=== PATIENT | male | born 1985 | race Hispanic/Latino ===

== ENCOUNTER 2018-02-04 05:05 | Emergency (ER) | payer OTHER ==
[2018-02-04 05:10] VITALS: BP 160/97; PULSE 84; RESP 18; TEMP 97.7; O2SAT 100
--- NOTE | 2018-02-04 05:53 | C.PDOC ---
History Of Present Illness 32 y/o male with PMHx of IVDU and daily heroine use presents to ED for complaints of a sensation of chest pain along with palpitation that lasted approximately until arrival. 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 Patient reports "I felt like my heart was beating out my chest." Patient currently states he feels better and does not wish to have and labs or imaging taken. Chief Complaint (Nursing): Substance Abuse History Per: Patient History/Exam Limitations: no limitations Onset/Duration Of Symptoms: Hrs Current Symptoms Are (Timing): Gone Suicide/Self Injury Attempted (Context): None Modifying Factor(s): Narcotics (Heroine ) Associated Symptoms: denies: Suicidal Thoughts, Suicidal Plan Involuntary Hold By: None Recent travel outside of the [place]: No Past Medical History Reviewed: Historical Data, Nursing Documentation, Vital Signs Vital Signs: Last Vital Signs Temp 97.7 F 02/04/18 05:08 Pulse 84 02/04/18 05:08 Resp 18 02/04/18 05:08 BP 160/97 H 02/04/18 05:08 Pulse Ox 100 02/04/18 06:21 Surgical History: No Surg Hx Family History: States: No Known Family Hx - Social History Hx Alcohol Use: No Hx Substance Use: Yes - Immunization History Hx Tetanus Toxoid Vaccination: No Hx Influenza Vaccination: No Hx Pneumococcal Vaccination: No Review Of Systems Constitutional: Negative for: Fever, Chills Cardiovascular: Positive for: Chest Pain, Palpitations Gastrointestinal: Negative for: Nausea, Vomiting, Abdominal Pain, Diarrhea Skin: Negative for: Rash Neurological: Negative for: Weakness, Numbness Psych: Negative for: Suicidal ideation Physical Exam - Physical Exam Appears: Non-toxic, No Acute Distress, Unkempt Skin: Warm, Dry, Other (Fresh needle green to posterir right forearm) Head: Atraumatic, Normacephalic Eye(s): bilateral: Normal Inspection, PERRL, EOMI Oral Mucosa: Moist Neck: Supple Chest: Symmetrical, No Tenderness Cardiovascular: Rhythm Irregular (with normal rate), No Murmur Respiratory: Normal Breath Sounds, No Decreased Breath Sounds, No Rales, No Rhonchi, No Wheezing Gastrointestinal/Abdominal: Soft, No Tenderness, No Distention, No Guarding, No Rebound Extremity: Normal ROM, No Pedal Edema, No Deformity Extremity: Bilateral: Normal Color And Temperature, Normal ROM Pulses: Left Dorsalis Pedis: Normal, Right Dorsalis Pedis: Normal Neurological/Psych: Oriented x3, Normal Speech, Normal Cognition, Normal Cranial Nerves, Normal Motor, Normal Sensation, Other (No focal deficits; sensorium clear ) Gait: Steady ED Course And Treatment O2 Sat by Pulse Oximetry: 100 (RA) Pulse Ox Interpretation: Normal Medical Decision Making Medical Decision Making: Impression: - S/P methamphetamine injection - Refuses all imaging and laboratories - Patient will be allowed to sign AMA Disposition - Disposition Referrals: [facility] [Outside] Disposition: AGAINST MEDICAL ADVICE Disposition Time: 05:51 Condition: UNKNOWN Instructions: Palpitations, Polysubstance Abuse Forms: [employer] (Nigerian) Print Language: GEORGIAN - Clinical Impression Clinical Impression: Drug abuse, Heart palpitations - Scribe Statement The provider has reviewed the documentation as recorded by the Scribe Blaise Sweeney All medical record entries made by the Scribe were at my direction and personally dictated by me. I have reviewed the chart and agree that the record accurately reflects my personal performance of the history, physical exam, medical decision making, and the department course for this patient. I have also personally directed, reviewed, and agree with the discharge instructions and disposition.
== END 2018-02-04 05:55 | disposition left against medical advice (07) ==
LOC: SUPCPDRO 05:05 → C.ER 05:05
DX: F19.10 Other psychoactive substance abuse, uncomplicated (principal); R00.2 Palpitations

== ENCOUNTER 2018-04-09 07:37 | Observation (INO) | payer OTHER ==
[2018-04-09] MEDS ORDERED: Sodium Chloride 0.9% 1,000 ML IV ONE ×3 (07:52→17:21)
--- NOTE | 2018-04-09 07:53 | C.PDOC ---
History Of Present Illness 32 y/o male with history of IVDA, polysubstance abuse, presents to ED for evaluation of severe epigastric abdominal pain associated with nausea and x2 episodes of non-bilious vomiting gradually developed for few days. Patient reports, decrease appetite, pain is worse with food intake, today developed some fever. Otherwise, pt denies severe headache, chills, dizziness, neck pain, drooling, CP, SOB , dyspnea, wheezing, cough, hematemesis, melena, diarrhea, back pain, UTI sx, denies recent travel or known sick contact. AT the time of evaluation, pt appears in pain. Time Seen by Provider: 04/09/18 07:41 Chief Complaint (Nursing): Abdominal Pain History Per: Patient History/Exam Limitations: no limitations Onset/Duration Of Symptoms: Days Current Symptoms Are (Timing): Still Present Location Of Pain/Discomfort: Epigastric Radiation Of Pain To:: None Past Medical History Reviewed: Historical Data, Nursing Documentation, Vital Signs Vital Signs: Last Vital Signs Temp 102.6 F H 04/09/18 12:42 Pulse 86 04/09/18 12:42 Resp 18 04/09/18 12:42 BP 105/67 04/09/18 12:42 Pulse Ox 98 04/09/18 12:42 - Medical History PMH: No Chronic Diseases Surgical History: No Surg Hx Family History: States: No Known Family Hx - Social History Hx Alcohol Use: Yes Hx Substance Use: Yes (last use yesterday) - Immunization History Hx Tetanus Toxoid Vaccination: No Hx Influenza Vaccination: No Hx Pneumococcal Vaccination: No Review Of Systems Except As Marked, All Systems Reviewed And Found Negative. Constitutional: Positive for: Fever. Negative for: Chills ENT: Negative for: Throat Pain Respiratory: Negative for: Cough, Shortness of Breath, Wheezing Gastrointestinal: Positive for: Nausea, Vomiting, Abdominal Pain. Negative for : Diarrhea, Hematochezia Genitourinary: Negative for: Dysuria Skin: Negative for: Rash Neurological: Negative for: Altered Mental Status Physical Exam - Physical Exam Appears: Non-toxic, Other (In pain ) Skin: Warm, Dry, Pale, No Rash Head: Atraumatic, Normacephalic Eye(s): bilateral: PERRL Nose: No Flaring, No Discharge Oral Mucosa: Moist, No Drooling Tongue: Normal Appearing Lips: Normal Appearing Throat: No Erythema, No Drooling Neck: Trachea Midline, Supple Cardiovascular: Rhythm Regular, No Murmur Respiratory: No Decreased Breath Sounds, No Accessory Muscle Use, No Rales, No Rhonchi, No Stridor, No Wheezing Gastrointestinal/Abdominal: Soft, Tenderness (Moderate epigastric), No Distention, No Guarding, No Rebound Back: No CVA Tenderness Extremity: Normal ROM, No Pedal Edema, No Swelling Neurological/Psych: Oriented x3, Normal Speech, Normal Cognition ED Course And Treatment - Laboratory Results Result Diagrams: 04/09/18 08:15 04/09/18 08:15 Lab Interpretation: Abnormal ECG: Interpreted By Me, Viewed By Me ECG Rhythm: Sinus Rhythm Interpretation Of ECG: SR@92/min, NAD, T wave inversion in III, no acute ST-T changes. O2 Sat by Pulse Oximetry: 99 (RA) Pulse Ox Interpretation: Normal - Radiology CXR: Interpreted by Me, Viewed By Me CXR Interpretation: Yes: Other (increase perihilar markings B/L) - CT Scan/US CT abd/pelvis Other Rad Studies (CT/US): Radiology Report Reviewed CT/US Interpretation: Creator : Garima Coulter. Dictator : Abhijit Villafuerte MD. Patient Registrar : Rubber Off : Abhijit Villafuerte MD. Approver2 : Report Date : 04/09/2018 10:24:01. My Comment : . Date of service: 04/09/2018. PROCEDURE: CT Abdomen and Pelvis with contrast. HISTORY: abd pain. COMPARISON: None. TECHNIQUE: Contrast dose: 100 mL Visipaque 320. Radiation dose: Total exam DLP = 354.6 mGy-cm. This CT exam was performed using one or more of the following dose reduction techniques: Automated exposure control, adjustment of the mA and/or kV according to patient size, and/or use of iterative reconstruction technique. FINDINGS: LOWER THORAX: Unremarkable. LIVER: 8 mm right hepatic dome hypodensity (series 3, image 23). 9 mm peripheral right hepatic lobe hypodensity (series 3, image 35). Posterior right hepatic lobe hypodensity measuring 3.5 cm (series 3, image 41). Periportal edema. GALLBLADDER AND BILE DUCTS: Diffuse gallbladder wall edema. No radiopaque calculi. PANCREAS: Unremarkable. No gross lesion or ductal dilatation. SPLEEN: Unremarkable. ADRENALS: Unremarkable. No mass. KIDNEYS AND URETERS: Unremarkable. No hydronephrosis. No solid mass. VASCULATURE: Unremarkable. No aortic aneurysm. BOWEL: Unremarkable. No obstruction. No gross mural thickening. APPENDIX: No findings to suggest acute appendicitis. PERITONEUM: Unremarkable. No free fluid. No free air. LYMPH NODES: Unremarkable. No enlarged lymph nodes. BLADDER: Unremarkable. REPRODUCTIVE: Unremarkable. BONES: No acute fracture. Unilateral left L5 spondylolysis. OTHER FINDINGS: None. IMPRESSION: Nonspecific hepatic hypodensities which cannot be characterized as simple cysts. The largest is in the posterior right hepatic lobe and measures up to 3.5 cm. Nonspecific periportal edema and diffuse gallbladder wall edema. No radiopaque calculi or obvious ductal dilatation. Progress Note: Code sepsis called after blood work review. Pt was OBS in ED for 3.5 hrs and remianed only slightly improved. Pt reports, " mild improvement in epigastric pain". hemodynamicaly stable, non-toxic. ENT: no acute changes. Lungs: CTA B/L, BS equal B/L. ABd: (+) epigstric tenderness, (-) guarding, (- ) rebound. back: (-) CVA tenderness. neurologicaly intact. CT abd/pelvis review: Nonspecific hepatic hypodensities which cannot be characterized as simple cysts. The largest is in the posterior right hepatic lobe and measures up to 3.5 cm. Nonspecific periportal edema and diffuse gallbladder wall edema. No radiopaque calculi or obvious ductal dilatation. Case discussed with ED attending and admission recommend. results review and discussed with pateint, admisison offered, agrees with plan. Case discussed with Hospitalist and admisison arranged to tele. Critical Care Time - Critical Care Note Total Time (in mins): 40 Documented critical care: time excludes all time spent performing seperately billable procedures. Disposition - Disposition Disposition: HOSPITALIZED Disposition Time: 10:53 Condition: STABLE - Clinical Impression Clinical Impression: Abdominal pain, Fever, Vomiting, Cholecystitis - PA / [employer] SAL[employer] CONSULTANT / Resident Statement MD/DO has reviewed & agrees with the documentation as recorded. - Scribe Statement The provider has reviewed the documentation as recorded by the Rafael Dumont All medical record entries made by the Rafael were at my direction and personally dictated by me. I have reviewed the chart and agree that the record accurately reflects my personal performance of the history, physical exam, medical decision making, and the department course for this patient. I have also personally directed, reviewed, and agree with the discharge instructions and disposition.
[2018-04-09 08:19] LABS: BASO % 0.4 % (0.0-2.0); EOS % 0.2 % (0.0-4.0); HEMOGLOBIN 13.8 g/dL (12.0-18.0); LYMPH # 0.8 K/uL (1.0-4.3); LYMPH % 17.7 % (20.0-40.0); MEAN CORPUSCULAR HGB CONC 34.8 g/dL (33.0-37.0); MEAN PLATELET VOLUME 8.4 fL (7.2-11.7); MONO % 0.6 % (0.0-10.0); NEUT # 3.7 K/uL (1.8-7.0); NEUT % 81.1 % (50.0-75.0); NRBC % 0.1 % (0.0-2.0); RBC 4.32 Mil/uL (4.40-5.90); RED CELL DISTRIBUTION WIDTH 13.5 % (11.5-14.5); WHITE BLOOD COUNT 4.5 K/uL (4.8-10.8)
[2018-04-09 08:27] LABS: INR 1.3; PROTHROMBIN TIME 14.4 SECONDS (9.7-12.2)
[2018-04-09 08:30] LABS: VENOUS BLOOD GAS BASE EXCESS 4.9 mmol/L (0.0-2.0); VENOUS BLOOD GAS PCO2 53 mmHg (40-60); VENOUS BLOOD GAS PO2 28 mm/Hg (30-55); VENOUS BLOOD PH 7.38 (7.32-7.43)
[2018-04-09] MEDS ORDERED: Sodium Chloride 0.9% 1,000 ML ONE ×3 (08:32→13:16)
[2018-04-09] MEDS ORDERED: Piperacillin/Tazobact 3.375 gm 100 ML IV STA (08:36)
[2018-04-09 08:45] LABS: ALB/GLOB RATIO 1.5 (1.0-2.1); ALBUMIN 4.5 g/dL (3.5-5.0); ALT/SGPT 63 U/L (21-72); AST/SGOT 34 U/L (17-59); BLOOD UREA NITROGEN 18 mg/dL (9-20); CALCIUM 9.1 mg/dl (8.6-10.4); GFR AFRICAN-AMERICAN > 60; GFR NON-AFRICAN AMERICAN > 60; LIPASE 44 U/L (23-300)
[2018-04-09] MEDS ORDERED: Piperacillin/Tazobact 3.375 gm 100 ML IVPB ONE (08:46)
[2018-04-09 09:26] LABS: URINE BILIRUBIN NEGATIVE (NEGATIVE); URINE BLOOD NEGATIVE (NEGATIVE); URINE CLARITY Clear (Clear); URINE COLOR Yellow (YELLOW); URINE GLUCOSE (UA) NORMAL (Normal); URINE LEUKOCYTE ESTERASE NEG Leu/uL (Negative); URINE PROTEIN NEGATIVE (NEGATIVE)
[2018-04-09] MEDS ORDERED: Iodixanol 320 MG/ML 100 ML BOTTLE IV ONE (09:57)
[2018-04-09 10:03] LABS: BARBITURATES, UR NEGATIVE (NEGATIVE); BENZODIAZEPINES, UR NEGATIVE (NEGATIVE); PHENCYCLIDINE, UR NEGATIVE (NEGATIVE)
[2018-04-09 10:10] LABS: OPIATES, UR POSITIVE (NEGATIVE)
--- NOTE | 2018-04-09 10:55 | CT ---
Date of service: 04/09/2018 PROCEDURE: CT Abdomen and Pelvis with contrast HISTORY: abd pain COMPARISON: None. TECHNIQUE: Contrast dose: 100 mL Visipaque 320 Radiation dose: Total exam DLP = 354.6 mGy-cm. This CT exam was performed using one or more of the following dose reduction techniques: Automated exposure control, adjustment of the mA and/or kV according to patient size, and/or use of iterative reconstruction technique. FINDINGS: LOWER THORAX: Unremarkable. LIVER: 8 mm right hepatic dome hypodensity (series 3, image 23). 9 mm peripheral right hepatic lobe hypodensity (series 3, image 35). Posterior right hepatic lobe hypodensity measuring 3.5 cm (series 3, image 41). Periportal edema. GALLBLADDER AND BILE DUCTS: Diffuse gallbladder wall edema. No radiopaque calculi. PANCREAS: Unremarkable. No gross lesion or ductal dilatation. SPLEEN: Unremarkable. ADRENALS: Unremarkable. No mass. KIDNEYS AND URETERS: Unremarkable. No hydronephrosis. No solid mass. VASCULATURE: Unremarkable. No aortic aneurysm. BOWEL: Unremarkable. No obstruction. No gross mural thickening. APPENDIX: No findings to suggest acute appendicitis. PERITONEUM: Unremarkable. No free fluid. No free air. LYMPH NODES: Unremarkable. No enlarged lymph nodes. BLADDER: Unremarkable. REPRODUCTIVE: Unremarkable. BONES: No acute fracture. Unilateral left L5 spondylolysis. OTHER FINDINGS: None. IMPRESSION: Nonspecific hepatic hypodensities which cannot be characterized as simple cysts. The largest is in the posterior right hepatic lobe and measures up to 3.5 cm. Nonspecific periportal edema and diffuse gallbladder wall edema. No radiopaque calculi or obvious ductal dilatation.
[2018-04-09] MEDS ORDERED: Vancomycin 1 GM 1 GM/250 ML BAG IV SCH (12:00)
--- NOTE | 2018-04-09 12:20 | RAD ---
Date of service: 04/09/2018 HISTORY: Sepsis Patient COMPARISON: No prior. FINDINGS: LUNGS: No active pulmonary disease. PLEURA: No significant pleural effusion identified, no pneumothorax apparent. CARDIOVASCULAR: Normal. OSSEOUS STRUCTURES: No significant abnormalities. VISUALIZED UPPER ABDOMEN: Normal. OTHER FINDINGS: None. IMPRESSION: No active disease.
[2018-04-09] MEDS: Sodium Chloride 0.9% 1,000 ML IV SCH ×2 (13:12→21:16)
[2018-04-09] MEDS ORDERED: Vancomycin 1 gm/NS 200 ml 1 GM/200 ML BAG IVPB ONE ×2 (13:15→13:30)
[2018-04-09 13:29] LABS: VENOUS BLOOD GAS BASE EXCESS 0.5 mmol/L (0.0-2.0); VENOUS BLOOD GAS PCO2 41 mmHg (40-60); VENOUS BLOOD GAS PO2 65 mm/Hg (30-55)
[2018-04-09] MEDS ORDERED: Piperacillin/Tazobact 3.375 GM in Sodium Chloride 100 ML IVPB SCH (14:00)
--- NOTE | 2018-04-09 14:03 | PCM.PSYCH ---
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 He also shoots cocaine, 2 dimes. Smokes MJ and cigarette "a little" He has never been to a detox but rehab few times He denies past/present psych issues Medical; None known Family psych hx: Mo used drugs Current Medications: Active Medications Generic Name Dose Route Start Last Admin Trade Name Freq PRN Reason Stop Dose Admin Acetaminophen 650 mg 04/09/18 14:00 Tylenol 325mg Tab PO Q6 PRN Fever >100.4 F Sodium Chloride 1,000 mls @ 125 mls/hr 04/09/18 12:30 04/09/18 13:12 Sodium Chloride 0.9% IV 125 mls/hr .Q8H FIDEL Administration Piperacillin Sod/Tazobactam 100 mls @ 200 mls/hr 04/09/18 14:00 Sod 3.375 gm/ Sodium Chloride IVPB Q6H FIDEL Protocol Vancomycin/Sodium Chloride 1 gm in 200 mls @ 133 mls/hr 04/10/18 00:01 Vancomycin 1 Gm/Ns 200 Ml IVPB 04/15/18 00:02 Q12H FIDEL Protocol Vancomycin/Sodium Chloride 1 gm in 200 mls @ 133.333 mls/hr 04/09/18 13:30 Vancomycin 1 Gm/Ns 200 Ml IVPB 04/09/18 14:59 ONCE ONE Protocol Methadone HCl 10 mg 04/09/18 18:00 Methadone PO 04/09/18 18:01 ONCE ONE Methadone HCl 0 mg 04/10/18 09:00 Methadone PO 04/14/18 08:59 Q24H FIDEL Taper Pantoprazole Sodium 40 mg 04/09/18 13:45 Protonix Inj IVP DAILY FIDEL Past Psychiatric History - Past Psychiatric History Previous Treatment History: None Pertinent Medical Hx (Current Medical&Sleep Prob, Allergies): Allergies Allergy/AdvReac Type Severity Reaction Status Date / Time No Known Allergies Allergy Verified 04/09/18 07:41 No Known Home Med 02/04/18 Review of Systems - Neurological Neurological: UNREMARKABLE - Psychiatric Psychiatric: Abnormal Sleep Pattern, Anxiety, Difficulty Concentrating. absent : Hallucinations, Homicidal Ideation, Suicidal Ideation Mental Status Examination - Personal Presentation Personal Presentation: Looks stated age - Affect Affect: Constricted - Motor Activity Motor Activity: Calm - Reliability in Providing Information Reliability in Providing Information: Good - Speech Speech: Organized - Mood Mood: Anxious - Formal Thought Process Formal Thought Process: No Impairment - Cognitive Functions Orientation: Person, Place, Situation, Time Sensorium: Alert Attention/Concentration: Attentive Estimate of Intelligence: Average Judgement: Intact, as evidence by: Insight regarding need for hospitalization Memory: Recent intact, as evidence by: Ability to recall events of the day, Remote intact, as evidenced by: Abilit to recall sig. life events - Risk Risk: Withdrawal, Diminished functioning - Strength & Assets Inventory Strength & Assets Inventory: Family support, Employment history, Cooperative - Limitations Limitations: Other DSM 5 DX - DSM 5 DSM 5 Diagnosis: Opioid withdrawal Opioid use d/o- severe Cocaine use d/o - severe - Recommended/Plan of Treatment Treatment Recommendations and Plan of Treatment: Methadone taper As needed medications Gabapentin for augmentation if needed All risks, benefits and alternatives of medications, including no medications, discussed and the patient understood and agreed. Supportive therapy and psychoeducation RI for abstinence Encourage MAT Refer to rehab or IOP Attend self-help groups as well RI for smoking cessation and patch if needed 34 min
[2018-04-09 14:22] LABS: HEPATITIS B SURFACE AG Negative (NEGATIVE)
[2018-04-09 14:27] LABS: HEPATITIS A IGM NEGATIVE (NEGATIVE); HEPATITIS B CORE AB NEGATIVE (NEGATIVE)
[2018-04-09 15:49] LABS: HEPATITIS C ANTIBODY REACTIVE (NEGATIVE)
[2018-04-09] MEDS: Piperacillin/Tazobact 3.375 GM in Sodium Chloride 100 ML IVPB SCH ×2 (17:43→21:25)
--- NOTE | 2018-04-09 17:59 | CP.PCM.HP ---
<Francisco Cam - Last Filed: 04/09/18 21:56> History of Present Illness - History of Present Illness History of Present Illness: CC: Abdominal Pain HPI: 32 year old Male w/ polysubstance abuse presents to ED for approximately 3 hours of 6/10, non radiating abdominal pain localized to RUQ to umbilical region. Patient states pain was constant, cramping in nature and was sudden in onset. 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 Patient initially had chills & nausea, denies fevers. Patient denies chest pain, difficulty breathing, vomiting, diarrhea, constipation, difficulty voiding, change in vision, change in hearing during this time. At time of exam, patient states pain in stomach as resolved. PMD: Dr. 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 absent: Fever, Weight Gain, Weight Loss, Weakness - EENT Eyes: absent: Blurred Vision, Change in Vision, Other Visual Disturbances Ears: absent: Decreased Hearing, Ear Pain - Cardiovascular Cardiovascular: absent: Chest Pain, Dyspnea, Leg Edema, Palpitations, Pedal Edema - Respiratory Respiratory: absent: Cough, Dyspnea - Gastrointestinal Gastrointestinal: Abdominal Pain, Cramping. absent: Change in Bowel Habits, Constipation, Diarrhea, Early Satiety - Genitourinary Genitourinary: absent: Change in Urinary Stream, Difficulty Urinating, Dysuria, Hematuria - Musculoskeletal Musculoskeletal: absent: Abnormal Gait, Arthralgias, Myalgias, Neck Pain - Neurological Neurological: absent: Abnormal Gait, Abnormal Hearing, Syncope - Psychiatric Psychiatric: absent: Abnormal Sleep Pattern, Behavioral Changes, Depression - Endocrine Endocrine: absent: Polydipsia, Polyphagia, Polyuria - Hematologic/Lymphatic Hematologic: absent: Easy Bleeding, Easy Bruising Past Patient History - Infectious Disease Hx of Infectious Diseases: None - Past Social History Smoking Status: Heavy Smoker > 10 Cigarettes Daily - PSYCHIATRIC Hx Substance Use: Yes (last use yesterday) - SURGICAL HISTORY Hx Surgeries: Yes Hx Orthopedic Surgery: Yes (jaw) - ANESTHESIA Hx Anesthesia: Yes Hx Anesthesia Reactions: No Meds Allergies/Adverse Reactions: Allergies Allergy/AdvReac Type Severity Reaction Status Date / Time No Known Allergies Allergy Verified 04/09/18 07:41 Physical Exam - Constitutional Appears: Well, Non-toxic, No Acute Distress - Head Exam Head Exam: ATRAUMATIC, NORMAL INSPECTION, NORMOCEPHALIC - Eye Exam Eye Exam: PERRL Pupil Exam: Mydriatic Additional comments: PERRL, but slow to respond b/l - ENT Exam ENT Exam: Mucous Membranes Moist - Neck Exam Additional comments: Multiple tattoos extending upto neck - Respiratory Exam Respiratory Exam: Rales, Wheezes. absent: Prolonged Expiratory Phase, Respiratory Distress - Cardiovascular Exam Cardiovascular Exam: REGULAR RHYTHM, +S1, +S2. absent: Irregular Rhythm, Systolic Murmur - GI/Abdominal Exam GI & Abdominal Exam: Hypoactive Bowel Sounds, Soft. absent: Distended, Guarding , Hernia Additional comments: possible positive box sign - Extremities Exam Extremities exam: Positive for: normal inspection. Negative for: calf tenderness, pedal edema Additional comments: Patient has needle track green and erythema on R lateral forearm. - Back Exam Back exam: NORMAL INSPECTION. absent: CVA tenderness (L), CVA tenderness (R) - Neurological Exam Neurological exam: Alert, CN II-XII Intact, Oriented x3 - Psychiatric Exam Psychiatric exam: Flat Affect, Normal Mood - Skin Skin Exam: Dry, Intact, Normal Color, Warm Results - Vital Signs Recent Vital Signs: Last Vital Signs Temp 98.4 F 04/09/18 16:03 Pulse 68 04/09/18 16:03 Resp 18 04/09/18 16:03 BP 96/57 L 04/09/18 16:03 Pulse Ox 98 04/09/18 16:03 - Labs Result Diagrams: 04/09/18 08:15 04/09/18 08:15 Labs: Laboratory Results - last 24 hr 04/09/18 04/09/18 04/09/18 08:15 08:15 08:15 WBC 4.5 L RBC 4.32 L Hgb 13.8 Hct 39.8 MCV 92.0 MCH 32.0 H MCHC 34.8 RDW 13.5 Plt Count 189 MPV 8.4 Neut % (Auto) 81.1 H Lymph % (Auto) 17.7 L [place] % (Auto) 0.6 Eos % (Auto) 0.2 Baso % (Auto) 0.4 Neut # (Auto) 3.7 Lymph # (Auto) 0.8 L [place] # (Auto) 0.0 Eos # (Auto) 0.0 Baso # (Auto) 0.0 PT 14.4 H INR 1.3 APTT 30 pO2 VBG pH VBG pCO2 VBG HCO3 VBG Total CO2 VBG O2 Sat (Calc) VBG Base Excess VBG Potassium Glucose Lactate FiO2 Sodium 139 Potassium 3.9 Chloride 96 L Carbon Dioxide 30 Anion Gap 17 BUN 18 Creatinine 1.0 Est GFR ( Amer) > 60 Est GFR (Non-Af Amer) > 60 Random Glucose 95 Calcium 9.1 Phosphorus 3.0 Magnesium 1.7 Total Bilirubin 1.4 H AST 34 ALT 63 Alkaline Phosphatase 65 Total Creatine Kinase 197 H Troponin I < 0.0120 Total Protein 7.5 Albumin 4.5 Globulin 2.9 Albumin/Globulin Ratio 1.5 Lipase 44 Venous Blood Potassium Urine Color Urine Clarity Urine pH Ur Specific [place] Urine Protein Urine Glucose (UA) Urine Ketones Urine Blood Urine Nitrate Urine Bilirubin Urine Urobilinogen Ur Leukocyte Esterase Urine WBC (Auto) Urine RBC (Auto) Urine Opiates Screen Urine Methadone Screen Ur Barbiturates Screen Ur Phencyclidine Scrn Ur Amphetamines Screen U Benzodiazepines Scrn U Oth Cocaine Metabols U Cannabinoids Screen Hepatitis A IgM Ab Hep Bs Antigen Hep B Core IgM Ab Hepatitis C Antibody HIV 1&2 Antibody Screen 04/09/18 04/09/18 04/09/18 08:20 09:11 09:11 WBC RBC Hgb Hct MCV MCH MCHC RDW Plt Count MPV Neut % (Auto) Lymph % (Auto) [place] % (Auto) Eos % (Auto) Baso % (Auto) Neut # (Auto) Lymph # (Auto) [place] # (Auto) Eos # (Auto) Baso # (Auto) PT INR APTT pO2 28 L VBG pH 7.38 VBG pCO2 53 VBG HCO3 27.5 VBG Total CO2 33.0 H VBG O2 Sat (Calc) 49.6 VBG Base Excess 4.9 H VBG Potassium 3.7 Glucose 93 Lactate 2.4 H FiO2 Sodium 136.0 Potassium Chloride 101.0 Carbon Dioxide Anion Gap BUN Creatinine Est GFR ( Amer) Est GFR (Non-Af Amer) Random Glucose Calcium Phosphorus Magnesium Total Bilirubin AST ALT Alkaline Phosphatase Total Creatine Kinase Troponin I Total Protein Albumin Globulin Albumin/Globulin Ratio Lipase Venous Blood Potassium 3.7 Urine Color Yellow Urine Clarity Clear Urine pH 5.0 Ur Specific [place] 1.026 Urine Protein Negative Urine Glucose (UA) Normal Urine Ketones Negative Urine Blood Negative Urine Nitrate Negative Urine Bilirubin Negative Urine Urobilinogen 2.0 Ur Leukocyte Esterase Neg Urine WBC (Auto) < 1 Urine RBC (Auto) < 1 Urine Opiates Screen Positive H Urine Methadone Screen Negative Ur Barbiturates Screen Negative Ur Phencyclidine Scrn Negative Ur Amphetamines Screen Negative U Benzodiazepines Scrn Negative U Oth Cocaine Metabols Positive H U Cannabinoids Screen Positive H Hepatitis A IgM Ab Hep Bs Antigen Hep B Core IgM Ab Hepatitis C Antibody HIV 1&2 Antibody Screen 04/09/18 04/09/18 04/09/18 13:06 13:06 13:09 WBC RBC Hgb Hct MCV MCH MCHC RDW Plt Count MPV Neut % (Auto) Lymph % (Auto) [place] % (Auto) Eos % (Auto) Baso % (Auto) Neut # (Auto) Lymph # (Auto) [place] # (Auto) Eos # (Auto) Baso # (Auto) PT INR APTT pO2 65 H VBG pH 7.40 VBG pCO2 41 VBG HCO3 25.2 VBG Total CO2 26.7 VBG O2 Sat (Calc) 95.7 H VBG Base Excess 0.5 VBG Potassium 3.2 L Glucose 133 H Lactate 1.2 FiO2 21.0 Sodium 133.0 Potassium Chloride 103.0 Carbon Dioxide Anion Gap BUN Creatinine Est GFR ( Amer) Est GFR (Non-Af Amer) Random Glucose Calcium Phosphorus Magnesium Total Bilirubin AST ALT Alkaline Phosphatase Total Creatine Kinase Troponin I Total Protein Albumin Globulin Albumin/Globulin Ratio Lipase Venous Blood Potassium 3.2 L Urine Color Urine Clarity Urine pH Ur Specific [place] Urine Protein Urine Glucose (UA) Urine Ketones Urine Blood Urine Nitrate Urine Bilirubin Urine Urobilinogen Ur Leukocyte Esterase Urine WBC (Auto) Urine RBC (Auto) Urine Opiates Screen Urine Methadone Screen Ur Barbiturates Screen Ur Phencyclidine Scrn Ur Amphetamines Screen U Benzodiazepines Scrn U Oth Cocaine Metabols U Cannabinoids Screen Hepatitis A IgM Ab Negative Hep Bs Antigen Negative Hep B Core IgM Ab Negative Hepatitis C Antibody Reactive HIV 1&2 Antibody Screen Negative Assessment & Plan - Assessment and Plan (Free Text) Assessment: 1) SIRS - monitor on telemetry - Criteria: Tmax: 102.8 F, lactate 2.4 -. 1.2 - IV abx: zosyn 3.375 g IV Q6 (active since 04/09/18) vancomyocin 1g IV Q 12 (active since 04/09 @ 12 noon, vanc troph due 11:30 PM 04/10) - Chest xray - no active disease, repeat chest Pa/ Lateral 04/10 - Pending blood cultures X2 - Pending UA & UC - Procalution 04/10 - Tylenol 650 mg PO Q6H PRN for fever - unclear etiology - right gallbladder - ID Dr. Bernabe on board - Legionella, strep pneumonia, mycoplasma IgM 2) History of IV Drug use - F/u HIV/Hepatitis Panel -Echocardiogram: fever, IV drug use - if spikes, repeat blood culutres(Blood) - 2 different locations, 30 minutes apart 3) Mild R arm swelling/ lymphagitis - track green over R upper extremity - non extremity US (right) r/o abscess 4) Abdkinal pain - Lipase - normal - CT abd/pel: non specific hepatic hypodense not as cystsL largest posterior R hepatic lobe ~3.5 cm, gallbladder edema - F/u Ab US: RUQ pain - keep NPO 5) Polysubstance abuse - psych management of withdrawal - + cocaine, + marijuana, + heroin - DO not give beta- blockers 6) Propylactic measure - protonix 40mg IV Q daily - SCDs b/l LE - Aspiration precautions - Seizure precautions - IV fluids: NS 125cc/hr - NPO <Shayy Vieyra V - Last Filed: 04/09/18 22:48> Results - Vital Signs Recent Vital Signs: Last Vital Signs Temp 98.4 F 04/09/18 16:03 Pulse 68 04/09/18 16:03 Resp 18 04/09/18 16:03 BP 96/57 L 04/09/18 16:03 Pulse Ox 98 04/09/18 16:03 - Labs Result Diagrams: 04/09/18 08:15 04/09/18 08:15 Labs: Laboratory Results - last 24 hr 04/09/18 04/09/18 04/09/18 08:15 08:15 08:15 WBC 4.5 L RBC 4.32 L Hgb 13.8 Hct 39.8 MCV 92.0 MCH 32.0 H MCHC 34.8 RDW 13.5 Plt Count 189 MPV 8.4 Neut % (Auto) 81.1 H Lymph % (Auto) 17.7 L [place] % (Auto) 0.6 Eos % (Auto) 0.2 Baso % (Auto) 0.4 Neut # (Auto) 3.7 Lymph # (Auto) 0.8 L [place] # (Auto) 0.0 Eos # (Auto) 0.0 Baso # (Auto) 0.0 PT 14.4 H INR 1.3 APTT 30 pO2 VBG pH VBG pCO2 VBG HCO3 VBG Total CO2 VBG O2 Sat (Calc) VBG Base Excess VBG Potassium Glucose Lactate FiO2 Sodium 139 Potassium 3.9 Chloride 96 L Carbon Dioxide 30 Anion Gap 17 BUN 18 Creatinine 1.0 Est GFR ( Amer) > 60 Est GFR (Non-Af Amer) > 60 Random Glucose 95 Calcium 9.1 Phosphorus 3.0 Magnesium 1.7 Total Bilirubin 1.4 H AST 34 ALT 63 Alkaline Phosphatase 65 Total Creatine Kinase 197 H Troponin I < 0.0120 Total Protein 7.5 Albumin 4.5 Globulin 2.9 Albumin/Globulin Ratio 1.5 Lipase 44 Venous Blood Potassium Urine Color Urine Clarity Urine pH Ur Specific [place] Urine Protein Urine Glucose (UA) Urine Ketones Urine Blood Urine Nitrate Urine Bilirubin Urine Urobilinogen Ur Leukocyte Esterase Urine WBC (Auto) Urine RBC (Auto) Urine Opiates Screen Urine Methadone Screen Ur Barbiturates Screen Ur Phencyclidine Scrn Ur Amphetamines Screen U Benzodiazepines Scrn U Oth Cocaine Metabols U Cannabinoids Screen Hepatitis A IgM Ab Hep Bs Antigen Hep B Core IgM Ab Hepatitis C Antibody HIV 1&2 Antibody Screen 04/09/18 04/09/18 04/09/18 08:20 09:11 09:11 WBC RBC Hgb Hct MCV MCH MCHC RDW Plt Count MPV Neut % (Auto) Lymph % (Auto) [place] % (Auto) Eos % (Auto) Baso % (Auto) Neut # (Auto) Lymph # (Auto) [place] # (Auto) Eos # (Auto) Baso # (Auto) PT INR APTT pO2 28 L VBG pH 7.38 VBG pCO2 53 VBG HCO3 27.5 VBG Total CO2 33.0 H VBG O2 Sat (Calc) 49.6 VBG Base Excess 4.9 H VBG Potassium 3.7 Glucose 93 Lactate 2.4 H FiO2 Sodium 136.0 Potassium Chloride 101.0 Carbon Dioxide Anion Gap BUN Creatinine Est GFR ( Amer) Est GFR (Non-Af Amer) Random Glucose Calcium Phosphorus Magnesium Total Bilirubin AST ALT Alkaline Phosphatase Total Creatine Kinase Troponin I Total Protein Albumin Globulin Albumin/Globulin Ratio Lipase Venous Blood Potassium 3.7 Urine Color Yellow Urine Clarity Clear Urine pH 5.0 Ur Specific [place] 1.026 Urine Protein Negative Urine Glucose (UA) Normal Urine Ketones Negative Urine Blood Negative Urine Nitrate Negative Urine Bilirubin Negative Urine Urobilinogen 2.0 Ur Leukocyte Esterase Neg Urine WBC (Auto) < 1 Urine RBC (Auto) < 1 Urine Opiates Screen Positive H Urine Methadone Screen Negative Ur Barbiturates Screen Negative Ur Phencyclidine Scrn Negative Ur Amphetamines Screen Negative U Benzodiazepines Scrn Negative U Oth Cocaine Metabols Positive H U Cannabinoids Screen Positive H Hepatitis A IgM Ab Hep Bs Antigen Hep B Core IgM Ab Hepatitis C Antibody HIV 1&2 Antibody Screen 04/09/18 04/09/18 04/09/18 13:06 13:06 13:09 WBC RBC Hgb Hct MCV MCH MCHC RDW Plt Count MPV Neut % (Auto) Lymph % (Auto) [place] % (Auto) Eos % (Auto) Baso % (Auto) Neut # (Auto) Lymph # (Auto) [place] # (Auto) Eos # (Auto) Baso # (Auto) PT INR APTT pO2 65 H VBG pH 7.40 VBG pCO2 41 VBG HCO3 25.2 VBG Total CO2 26.7 VBG O2 Sat (Calc) 95.7 H VBG Base Excess 0.5 VBG Potassium 3.2 L Glucose 133 H Lactate 1.2 FiO2 21.0 Sodium 133.0 Potassium Chloride 103.0 Carbon Dioxide Anion Gap BUN Creatinine Est GFR ( Amer) Est GFR (Non-Af Amer) Random Glucose Calcium Phosphorus Magnesium Total Bilirubin AST ALT Alkaline Phosphatase Total Creatine Kinase Troponin I Total Protein Albumin Globulin Albumin/Globulin Ratio Lipase Venous Blood Potassium 3.2 L Urine Color Urine Clarity Urine pH Ur Specific [place] Urine Protein Urine Glucose (UA) Urine Ketones Urine Blood Urine Nitrate Urine Bilirubin Urine Urobilinogen Ur Leukocyte Esterase Urine WBC (Auto) Urine RBC (Auto) Urine Opiates Screen Urine Methadone Screen Ur Barbiturates Screen Ur Phencyclidine Scrn Ur Amphetamines Screen U Benzodiazepines Scrn U Oth Cocaine Metabols U Cannabinoids Screen Hepatitis A IgM Ab Negative Hep Bs Antigen Negative Hep B Core IgM Ab Negative Hepatitis C Antibody Reactive HIV 1&2 Antibody Screen Negative Attending/Attestation - Attestation I have personally seen and examined this patient.: Yes I have fully participated in the care of the patient.: Yes I have reviewed all pertinent clinical information: Yes Notes (Text): Patient seen, examined and case discussed with day-time resident. Patient seen in the ED at 12:35PM today with girlfriend at bedside. Patient reports abdominal pain, epigastric, sharp pain which bothered him since yesterday. He also admits to heroin, cocaine, and cannabis. He reports he injects heroin in his arm right upper arm. He reports he snorts cocaine though it takes him time to admit it. 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 Patient was called code sepsis in the ED. Lactate improved on repeat. Patient is on empiric IV abx treatment. Lung exam is abnormal I do hear wheezing. Will repeat chest xray in the AM after patient is clinically hydrated. Case discussed with ID. 1) SIRS Assessment/Plan * monitor on telemetry * Criteria: Tmax: 102.8 F, lactate 2.4 -. 1.2 * IV abx: zosyn 3.375 g IV Q6 (active since 04/09/18) vancomycin 1g IV Q 12 (active since 04/09 @ 12 noon, vanc troph due 11:30 PM 04/10) * Chest xray - no active disease, repeat chest Pa/ Lateral 04/10 * Pending blood cultures X * Pending UA & UC * Procalcition 04/10 * Tylenol 650 mg PO Q6H PRN for fever * unclear etiology for source of infection * ID Dr. Mo on board * Pending Legionella, strep pneumonia, mycoplasma IgM 2) History of IV Drug use Assessment/Plan * F/u HIV/Hepatitis Panel * Order for chocardiogram: fever, IV drug use * if spikes, repeat blood culutres(Blood) - 2 different locations, 30 minutes apart 3) Mild R arm swelling/ lymphagitis Assessment/Plan * track green over R upper extremity * non extremity US (right) r/o abscess 4) Abdominal pain Assessment/Plan * Lipase - normal * CT abd/pel: non specific hepatic hypodense not as cysts largest posterior R hepatic lobe ~3.5 cm, gallbladder edema * F/u Ab US: RUQ pain possible cholecystitis * keep NPO 5) Polysubstance abuse Assessment/Plan * Psychiatry (Dr. Guajardo) on case help appreciated * psych management of withdrawal * + cocaine, + marijuana, + heroin * DO not give beta- blockers * Seizure precautions 6) Propylactic measure * protonix 40mg IV Q daily * SCDs b/l LE * Aspiration precautions * Seizure precautions * IV fluids: NS 125cc/hr * NPO
--- NOTE | 2018-04-09 18:21 | US ---
Date of service: 04/09/2018 HISTORY: rule of cholecystitis COMPARISON: April 09, 2018. CT abdomen and pelvis TECHNIQUE: Sonographic evaluation of the abdomen. FINDINGS: LIVER: Measures 18.3 cm. Patent portal vein. Portal venous flow: Hepatopetal. Unremarkable echogenicity of the liver parenchyma. Multiple hyperechoic hepatic masses. These vary from 8 mm - 3.3 cm. GALLBLADDER: Gallbladder wall edema. Maximum thickness 10 mm. COMMON BILE DUCT: Measures 4.8 mm. No stones. No dilatation. PANCREAS: Unremarkable as visualized. No mass. No ductal dilatation. RIGHT KIDNEY: Measures 4.3 x 14.0cm. Normal echogenicity. No calculus, mass, or hydronephrosis. LEFT KIDNEY: Measures 6.1 x 12.9cm. Normal echogenicity. No calculus, mass, or hydronephrosis. SPLEEN: Splenomegaly. Orthogonal measurements 6.9 x 14 cm. AORTA: No aneurysmal dilatation. IVC: Unremarkable. OTHER FINDINGS: None. IMPRESSION: Confirmation multiple hepatic masses. Gallbladder wall thickening without gallstones or other pathologic process.
--- NOTE | 2018-04-09 20:54 | CP.PCM.CON ---
History of Present Illness - History of Present Illness History of Present Illness: dictated Past Patient History - Infectious Disease Hx of Infectious Diseases: None - Past Social History Smoking Status: Heavy Smoker > 10 Cigarettes Daily - HEMATOLOGICAL/ONCOLOGICAL Hx Hepatitis C: Yes - PSYCHIATRIC Hx Substance Use: Yes (last use yesterday) Other/Comment: IV Heroine Abuse - SURGICAL HISTORY Hx Surgeries: Yes Hx Orthopedic Surgery: Yes (jaw) - ANESTHESIA Hx Anesthesia: Yes Hx Anesthesia Reactions: No Meds Allergies/Adverse Reactions: Allergies Allergy/AdvReac Type Severity Reaction Status Date / Time No Known Allergies Allergy Verified 04/09/18 07:41 - Medications Medications: Current Medications Acetaminophen (Tylenol 325mg Tab) 650 mg PO Q6 PRN PRN Reason: Fever >100.4 F Sodium Chloride (Sodium Chloride 0.9%) 1,000 mls @ 125 mls/hr IV .Q8H [facility] Last Admin: 04/09/18 13:12 Dose: 125 mls/hr Vancomycin/Sodium Chloride (Vancomycin 1 Gm/Ns 200 Ml) 1 gm in 200 mls @ 133 mls/hr IVPB Q12H [facility] PRN Reason: Protocol Stop: 04/15/18 00:02 Piperacillin Sod/Tazobactam (Sod 3.375 gm/ Sodium Chloride) 100 mls @ 200 mls/ hr IVPB Q6H [facility] PRN Reason: Protocol Last Admin: 04/09/18 17:43 Dose: 200 mls/hr Methadone HCl (Methadone) 15 mg PO Q24H [facility] PRN Reason: Taper Stop: 04/14/18 08:59 Pantoprazole Sodium (Protonix Inj) 40 mg IVP DAILY [facility] Last Admin: 04/09/18 16:01 Dose: 40 mg Trazodone HCl (Desyrel) 100 mg PO HS [facility] Results - Vital Signs Recent Vital Signs: Last Vital Signs Temp 98.4 F 04/09/18 16:03 Pulse 61 04/09/18 18:50 Resp 18 04/09/18 18:50 BP 106/67 04/09/18 18:50 Pulse Ox 98 04/09/18 16:03 - Labs Result Diagrams: 04/09/18 08:15 04/09/18 08:15 Labs: Laboratory Results - last 24 hr 04/09/18 04/09/18 04/09/18 08:15 08:15 08:15 WBC 4.5 L RBC 4.32 L Hgb 13.8 Hct 39.8 MCV 92.0 MCH 32.0 H MCHC 34.8 RDW 13.5 Plt Count 189 MPV 8.4 Neut % (Auto) 81.1 H Lymph % (Auto) 17.7 L Dooly % (Auto) 0.6 Eos % (Auto) 0.2 Baso % (Auto) 0.4 Neut # (Auto) 3.7 Lymph # (Auto) 0.8 L Dooly # (Auto) 0.0 Eos # (Auto) 0.0 Baso # (Auto) 0.0 PT 14.4 H INR 1.3 APTT 30 pO2 VBG pH VBG pCO2 VBG HCO3 VBG Total CO2 VBG O2 Sat (Calc) VBG Base Excess VBG Potassium Glucose Lactate FiO2 Sodium 139 Potassium 3.9 Chloride 96 L Carbon Dioxide 30 Anion Gap 17 BUN 18 Creatinine 1.0 Est GFR ( Amer) > 60 Est GFR (Non-Af Amer) > 60 Random Glucose 95 Calcium 9.1 Phosphorus 3.0 Magnesium 1.7 Total Bilirubin 1.4 H AST 34 ALT 63 Alkaline Phosphatase 65 Total Creatine Kinase 197 H Troponin I < 0.0120 Total Protein 7.5 Albumin 4.5 Globulin 2.9 Albumin/Globulin Ratio 1.5 Lipase 44 Procalcitonin Venous Blood Potassium Urine Color Urine Clarity Urine pH Ur Specific Mchenry Urine Protein Urine Glucose (UA) Urine Ketones Urine Blood Urine Nitrate Urine Bilirubin Urine Urobilinogen Ur Leukocyte Esterase Urine WBC (Auto) Urine RBC (Auto) Urine Opiates Screen Urine Methadone Screen Ur Barbiturates Screen Ur Phencyclidine Scrn Ur Amphetamines Screen U Benzodiazepines Scrn U Oth Cocaine Metabols U Cannabinoids Screen Hepatitis A IgM Ab Hep Bs Antigen Hep B Core IgM Ab Hepatitis C Antibody HIV 1&2 Antibody Screen 04/09/18 04/09/18 04/09/18 08:20 09:11 09:11 WBC RBC Hgb Hct MCV MCH MCHC RDW Plt Count MPV Neut % (Auto) Lymph % (Auto) Dooly % (Auto) Eos % (Auto) Baso % (Auto) Neut # (Auto) Lymph # (Auto) Dooly # (Auto) Eos # (Auto) Baso # (Auto) PT INR APTT pO2 28 L VBG pH 7.38 VBG pCO2 53 VBG HCO3 27.5 VBG Total CO2 33.0 H VBG O2 Sat (Calc) 49.6 VBG Base Excess 4.9 H VBG Potassium 3.7 Glucose 93 Lactate 2.4 H FiO2 Sodium 136.0 Potassium Chloride 101.0 Carbon Dioxide Anion Gap BUN Creatinine Est GFR ( Amer) Est GFR (Non-Af Amer) Random Glucose Calcium Phosphorus Magnesium Total Bilirubin AST ALT Alkaline Phosphatase Total Creatine Kinase Troponin I Total Protein Albumin Globulin Albumin/Globulin Ratio Lipase Procalcitonin Venous Blood Potassium 3.7 Urine Color Yellow Urine Clarity Clear Urine pH 5.0 Ur Specific Mchenry 1.026 Urine Protein Negative Urine Glucose (UA) Normal Urine Ketones Negative Urine Blood Negative Urine Nitrate Negative Urine Bilirubin Negative Urine Urobilinogen 2.0 Ur Leukocyte Esterase Neg Urine WBC (Auto) < 1 Urine RBC (Auto) < 1 Urine Opiates Screen Positive H Urine Methadone Screen Negative Ur Barbiturates Screen Negative Ur Phencyclidine Scrn Negative Ur Amphetamines Screen Negative U Benzodiazepines Scrn Negative U Oth Cocaine Metabols Positive H U Cannabinoids Screen Positive H Hepatitis A IgM Ab Hep Bs Antigen Hep B Core IgM Ab Hepatitis C Antibody HIV 1&2 Antibody Screen 04/09/18 04/09/18 04/09/18 13:06 13:06 13:09 WBC RBC Hgb Hct MCV MCH MCHC RDW Plt Count MPV Neut % (Auto) Lymph % (Auto) Dooly % (Auto) Eos % (Auto) Baso % (Auto) Neut # (Auto) Lymph # (Auto) Dooly # (Auto) Eos # (Auto) Baso # (Auto) PT INR APTT pO2 65 H VBG pH 7.40 VBG pCO2 41 VBG HCO3 25.2 VBG Total CO2 26.7 VBG O2 Sat (Calc) 95.7 H VBG Base Excess 0.5 VBG Potassium 3.2 L Glucose 133 H Lactate 1.2 FiO2 21.0 Sodium 133.0 Potassium Chloride 103.0 Carbon Dioxide Anion Gap BUN Creatinine Est GFR ( Amer) Est GFR (Non-Af Amer) Random Glucose Calcium Phosphorus Magnesium Total Bilirubin AST ALT Alkaline Phosphatase Total Creatine Kinase Troponin I Total Protein Albumin Globulin Albumin/Globulin Ratio Lipase Procalcitonin Venous Blood Potassium 3.2 L Urine Color Urine Clarity Urine pH Ur Specific Mchenry Urine Protein Urine Glucose (UA) Urine Ketones Urine Blood Urine Nitrate Urine Bilirubin Urine Urobilinogen Ur Leukocyte Esterase Urine WBC (Auto) Urine RBC (Auto) Urine Opiates Screen Urine Methadone Screen Ur Barbiturates Screen Ur Phencyclidine Scrn Ur Amphetamines Screen U Benzodiazepines Scrn U Oth Cocaine Metabols U Cannabinoids Screen Hepatitis A IgM Ab Negative Hep Bs Antigen Negative Hep B Core IgM Ab Negative Hepatitis C Antibody Reactive HIV 1&2 Antibody Screen Negative 04/09/18 13:23 WBC RBC Hgb Hct MCV MCH MCHC RDW Plt Count MPV Neut % (Auto) Lymph % (Auto) Dooly % (Auto) Eos % (Auto) Baso % (Auto) Neut # (Auto) Lymph # (Auto) Dooly # (Auto) Eos # (Auto) Baso # (Auto) PT INR APTT pO2 VBG pH VBG pCO2 VBG HCO3 VBG Total CO2 VBG O2 Sat (Calc) VBG Base Excess VBG Potassium Glucose Lactate FiO2 Sodium Potassium Chloride Carbon Dioxide Anion Gap BUN Creatinine Est GFR ( Amer) Est GFR (Non-Af Amer) Random Glucose Calcium Phosphorus Magnesium Total Bilirubin AST ALT Alkaline Phosphatase Total Creatine Kinase Troponin I Total Protein Albumin Globulin Albumin/Globulin Ratio Lipase Procalcitonin 12.52 H Venous Blood Potassium Urine Color Urine Clarity Urine pH Ur Specific Mchenry Urine Protein Urine Glucose (UA) Urine Ketones Urine Blood Urine Nitrate Urine Bilirubin Urine Urobilinogen Ur Leukocyte Esterase Urine WBC (Auto) Urine RBC (Auto) Urine Opiates Screen Urine Methadone Screen Ur Barbiturates Screen Ur Phencyclidine Scrn Ur Amphetamines Screen U Benzodiazepines Scrn U Oth Cocaine Metabols U Cannabinoids Screen Hepatitis A IgM Ab Hep Bs Antigen Hep B Core IgM Ab Hepatitis C Antibody HIV 1&2 Antibody Screen
[2018-04-09 22:39] LABS: MYCOPLASMA PNEUMONIAE IGM NEGATIVE (NEGATIVE)
[2018-04-10] MEDS: Vancomycin 1 gm/NS 200 ml 1 GM/200 ML BAG IVPB SCH ×2 (00:08→13:19)
[2018-04-10] MEDS: Piperacillin/Tazobact 3.375 GM in Sodium Chloride 100 ML IVPB SCH ×4 (03:23→21:16)
[2018-04-10] MEDS: Sodium Chloride 0.9% 1,000 ML IV SCH ×2 (03:24→07:12)
--- NOTE | 2018-04-10 06:26 | CP.PCM.PN ---
<Francisco Cam M - Last Filed: 04/10/18 21:13> Subjective - Date & Time of Evaluation Date of Evaluation: 04/10/18 Time of Evaluation: 10:10 - Subjective Subjective: PGY1 Resident Note for Dr. Vieyra. Patient seen and examined at bedside. Patient lying in bed in no acute distress. Patient denies chest pain, difficulty breathing, abdominal pain, trouble voiding, constipation, and headaches. Pt spiked fevers overnight, Tmax 101.2, 2 additional cultures obtained, 30 minutes apart. Objective - Vital Signs/Intake and Output Vital Signs (last 24 hours): Temp Pulse Resp BP Pulse Ox 99 F 66 20 117/80 98 04/10/18 05:10 04/10/18 05:10 04/10/18 05:10 04/10/18 05:10 04/10/18 05:10 Intake and Output: 04/09/18 04/10/18 18:59 06:59 Output Total 400 Balance -400 - Medications Medications: Current Medications Acetaminophen (Tylenol 325mg Tab) 650 mg PO Q6 PRN PRN Reason: Fever >100.4 F Last Admin: 04/10/18 00:09 Dose: 650 mg Sodium Chloride (Sodium Chloride 0.9%) 1,000 mls @ 125 mls/hr IV .Q8H [facility] Last Admin: 04/10/18 03:24 Dose: 125 mls/hr Vancomycin/Sodium Chloride (Vancomycin 1 Gm/Ns 200 Ml) 1 gm in 200 mls @ 133 mls/hr IVPB Q12H [facility] PRN Reason: Protocol Stop: 04/15/18 00:02 Last Admin: 04/10/18 00:08 Dose: 133 mls/hr Piperacillin Sod/Tazobactam (Sod 3.375 gm/ Sodium Chloride) 100 mls @ 200 mls/ hr IVPB Q6H [facility] PRN Reason: Protocol Last Admin: 04/10/18 03:23 Dose: 200 mls/hr Methadone HCl (Methadone) 15 mg PO Q24H [facility] PRN Reason: Taper Stop: 04/14/18 08:59 Pantoprazole Sodium (Protonix Inj) 40 mg IVP DAILY [facility] Last Admin: 04/09/18 16:01 Dose: 40 mg Trazodone HCl (Desyrel) 100 mg PO HS [facility] Last Admin: 04/09/18 21:16 Dose: 100 mg - Labs Labs: 04/09/18 08:15 04/09/18 08:15 PT 14.4 SECONDS (9.7-12.2) H 04/09/18 08:15 INR 1.3 04/09/18 08:15 APTT 30 SECONDS (21-34) 04/09/18 08:15 - Constitutional Appears: Well, Non-toxic, No Acute Distress - Head Exam Head Exam: ATRAUMATIC, NORMAL INSPECTION, NORMOCEPHALIC - Eye Exam Eye Exam: EOMI, PERRL Pupil Exam: Mydriatic, NORMAL ACCOMODATION - ENT Exam ENT Exam: Mucous Membranes Moist - Neck Exam Additional comments: Pt has tattoos extending to neck - Respiratory Exam Respiratory Exam: Clear to Ausculation Bilateral, NORMAL BREATHING PATTERN. absent: Rales, Rhonchi, Wheezes - Cardiovascular Exam Cardiovascular Exam: +S1, +S2. absent: Irregular Rhythm, Murmur - GI/Abdominal Exam GI & Abdominal Exam: Soft, Normal Bowel Sounds. absent: Distended, Firm, Guarding - Extremities Exam Extremities Exam: Full ROM, Normal Inspection. absent: Calf Tenderness, Pedal Edema Additional comments: Patient has track green on right forearm. B/L LE no edema, pulses in tact. - Back Exam Back Exam: NORMAL INSPECTION Additional comments: Patient has multiple tattoos from back, stomach, extending to neck. - Neurological Exam Neurological Exam: Alert, Awake - Psychiatric Exam Psychiatric exam: Flat Affect, Normal Mood - Skin Skin Exam: Dry, Intact, Normal Color, Warm Assessment and Plan - Assessment and Plan (Free Text) Assessment: 1) SIRS 04/10 - overnight fever spikes of 101.2F, f/u cultures - 24 hrs cultures - gram negative rods - UA culture negative - on gentamicin 80mg 04/10, zosyn gm 04/09, vancomycin 1gm 04/09 04/09 - monitor on telemetry - Criteria: Tmax: 102.8 F, lactate 2.4 -. 1.2 - IV abx: zosyn 3.375 g IV Q6 (active since 04/09/18) vancomyocin 1g IV Q 12 (active since 04/09 @ 12 noon, vanc troph due 11:30 PM 04/10) - Chest xray - no active disease, repeat chest Pa/ Lateral 04/10 - Pending blood cultures X2 - Pending UA & UC - Procalution 04/09 - 12.52, f/u 04/11 - Tylenol 650 mg PO Q6H PRN for fever - ID Dr. Bernabe on board - Legionella, strep pneumonia, mycoplasma IgM 2) History of IV Drug use - HIV - negative - Hep C - reactive- explained to patient in detail of results - Echocardiogram: fever, IV drug use f/u 3) Mild R arm swelling/ lymphagitis - track green over R upper extremity - U/S reveals no abscess 4) Abdominal pain - Lipase - normal - CT liver - 3 hepatic masses, nodular peripheral enhancement seen in 2 large masses suggestive of but diagnostic for hemagioma, must exclude hepatocellular malignancy - CT abd/pel: non specific hepatic hypodense not as cysts largest posterior R hepatic lobe ~3.5 cm, gallbladder edema - U/S gallbladder thickening, no stones present 5) Polysubstance abuse - psych management of withdrawal - on methadone taper - + cocaine, + marijuana, + heroin - DO not give beta- blockers 6) Propylactic measure - protonix 40mg IV Q daily - SCDs b/l LE - Aspiration precautions - Seizure precautions - IV fluids: NS 125cc/hr - Clear liquids per GI <Shayy Vieyra V - Last Filed: 04/15/18 00:38> Objective - Vital Signs/Intake and Output Vital Signs (last 24 hours): Temp Pulse Resp BP Pulse Ox 98.6 F 60 20 137/84 98 04/11/18 23:20 04/12/18 07:20 04/11/18 23:20 04/11/18 23:20 04/11/18 23:20 - Labs Labs: 04/12/18 06:21 04/12/18 06:21 PT 14.4 SECONDS (9.7-12.2) H 04/09/18 08:15 INR 1.3 04/09/18 08:15 APTT 30 SECONDS (21-34) 04/09/18 08:15 Attending/Attestation - Attestation I have personally seen and examined this patient.: Yes I have fully participated in the care of the patient.: Yes I have reviewed all pertinent clinical information, including history, physical exam and plan: Yes Notes (Text): This is late computer entry for 04/10/18. Patient seen, examined and case discussed with day-time resident. Patient seen this morning with girlfriend today at bedside. Patient reports he feels better compared to yesterday. Patient allows for discussion about his medical history and results in front of his girlfriend. We have discussed that he is positive Hepatitis C ab per screening and that it is transmissable via body/blood fluids and that he will need further testing as outpatient for possible treatment. I also have advised him that his sexual partners should be tested and eligible for treatment. GI and General surgery consulted on the case. Help appreciated. Patient noted to have positive blood cultures; started on 3rd IV abx by ID to cover for bacteremia. 1) SIRS Bacteremia Assessment/Plan * monitor on telemetry * ID Dr. Mo on board-->help appreciated * Criteria: Tmax: 102.8 F, lactate 2.4 -. 1.2 * IV abx: zosyn 3.375 g IV Q6 (active since 04/09/18) vancomycin 1g IV Q 12 (active since 04/09 @ 12 noon, vanc troph due 11:30 PM 04/10) Start Gentamicin by ID given bacteremia * Chest xray - no active disease, r * Chest Pa/ Lateral 04/10: no active disease * Blood cultures (04/09/18): gram negative rods X2 * Procalcition: 12.52 * Tylenol 650 mg PO Q6H PRN for fever * unclear etiology for source of infection * Pending Legionella, strep pneumonia, mycoplasma IgM 2) History of IV Drug use Hepatitis C AB + Assessment/Plan * 04/10: discussed with patient and girlfriend in regards to Hep C Ab+ likely secondary to IV drug use; education provided to transfer of body fluids/blood fluids; advised to not share needles and advised to follow-up outpatient doctor for possible treatment if confirmed with additional blood testing * HIV negative * Pending echocardiogram: fever, IV drug use * Ordered Blood cultures (04/10/18) given spiked fever overnight 3) Mild R arm swelling/ lymphagitis Assessment/Plan * track green over R upper extremity noted on admission * non extremity US (right) r/o abscess (04/10): no sonographic evidence of abscess 4) Abdominal pain Assessment/Plan * General surgery (Dr. Phelan) youth care professional-->help appreciated * no surgical intervention * GI (Dr. Del Cid) youth care professional-->help appreciated * Liver CT reviewed by me showing potential hemangiomas as etiology of liver lesions, though not definitive. Will need to review with radiology. * Clear liquid diet as tolerated * Patient not a candidate for HCV therapy due to ongoing substance abuse * Lipase - normal * CT abd/pel: non specific hepatic hypodense not as cysts largest posterior R hepatic lobe ~3.5 cm, gallbladder edema * Abdominal US (04/09/18): confirmation multiple hepatic masses. Gallbladder wall thickening without stones or other pathologies. * Diet advanced to liquid after discussions with both GI and general surgery 5) Polysubstance abuse Assessment/Plan * Psychiatry (Dr. Guajardo) on case help appreciated * psych management of withdrawal * + cocaine, + marijuana, + heroin * DO not give beta- blockers * Seizure precautions 6) Propylactic measure * protonix 40mg IV Q daily * SCDs b/l LE * Aspiration precautions * Seizure precautions * IV fluids: NS 125cc/hr * Diet advanced to liquid
--- NOTE | 2018-04-10 09:00 | CON ---
DATE: 04/09/2018 INFECTIOUS DISEASE CONSULT REQUESTED BY: Shayy Vieyra DO REASON FOR CONSULT: Consult was requested because the patient has lactic acid level 2.5 and has been febrile. HISTORY OF PRESENT ILLNESS: He is a 32-year-old male. He has history of IV drug abuse and polysubstance abuse. He came in with severe epigastric pain, abdominal pain, nausea, and having vomiting for few days. He also had a low-grade temp when he came here. His girlfriend is at the bedside. He has been having poor appetite and pain, worse with food intake and developed fever also. He denies any headaches. No diarrhea. No melena. He hematemesis. No back pain. He admitted to doing drugs and denied any recent travel. Denies any urinary complaints. No dysuria. No constipation. He does have upper abdominal pain, mostly epigastric. PAST MEDICAL HISTORY: Significant for substance abuse. PAST SURGICAL HISTORY: The only surgery he had was the jaw surgery, he said 10 years ago. Temperature is 102.6 today, pulse 86. He was threatening profusely before according to Dr. Vieyra, but then when I went in, he was much calmer. He probably would need to be monitored for DTs also. Blood pressure 105/67, pulse was 98. SOCIAL HISTORY: He drinks. He smokes. He also has substance abuse, and he took his last medication ____(01:54), and he took the medication yesterday. REVIEW OF SYSTEMS: Positive fever. No chills. Denies cough, cold, shortness of breath, or difficulty swallowing. Does complain of nausea, vomiting, and epigastric pain. Denies any diarrhea. No blood in the stool. Denies any dysuria, urgency, or frequency. No skin rashes. No joint pain. PHYSICAL EXAMINATION: VITAL SIGNS: His temperature is 98.4 now, pulse 68, blood pressure 96/57, respirations are 18. HEENT: Head is atraumatic and normocephalic. Pupils are reacting to light. The tongue is dry. NECK: Supple. JVP is flat. LUNGS: Clear. No crackles or rales present. HEART: S1 and S2 are regular. No murmurs appreciated. ABDOMEN: Soft and nontender. No guarding. No rigidity present. He did have mild epigastric tenderness. Otherwise, the abdomen is benign. No rebound. EXTREMITIES: No edema, clubbing, or cyanosis. He was not having any tremors. LABORATORY DATA: White count is 4.5, hemoglobin 13.8, hematocrit 39.8, platelet count is 189. INR is 1.3. ABG is unremarkable. Sodium 139, potassium 3.9, chloride is 96, CO2 is 30, and creatinine is 1. Total bili is 1.4. CPK is 197. Procalcitonin level is 12.52. Venous blood is 3.2. He probably has some bacterial infection since his procalcitonin is so high. He is positive for opioids, cocaine, and cannabinoids. Hep C was reactive, and hepatitis profile shows HIV is negative. Mycoplasma is pending. His chest x-ray was negative. Abdominal and pelvic CT was done. Abdominal and pelvic CT shows nonspecific periportal edema and diffuse gallbladder wall edema. No radio-opaque calculi or obvious ductal dilatation noted. An 8 mm right hepatic dome, 9 mm peripheral right hepatic lobe hypodensity, posterior right hepatic lobe hypodensity measuring 3.5 cm periportal edema. ASSESSMENT AND PLAN: I am not sure if he is having infections. He is septic probably and may rule out endocarditis if he is an IV drug abuser. He is on vancomycin and Zosyn at this time. These liver findings, I am no sure if those are cysts or abscesses, need to be monitored, and also x-ray was negative. So doubt is any pneumonia, we will repeat the x-ray tomorrow and we will continue with the antibiotics, and he will also need psychiatric evaluation. He is started on methadone right now, and we will follow. Ishan Mo MD
--- NOTE | 2018-04-10 09:55 | US ---
Date of service: 04/09/2018 PROCEDURE: Ultrasound right forearm/ antecubital fossa HISTORY: rule out abscess COMPARISON: None available TECHNIQUE: Ultrasound examination was performed in the region of the antecubital fossa for evaluation of possible abscess or FINDINGS: No fluid collection or mass is identified. IMPRESSION: No sonographic evidence of abscess.
[2018-04-10 10:54] LABS: BASO % 0.4 % (0.0-2.0); EOS % 0.1 % (0.0-4.0); HEMOGLOBIN 12.9 g/dL (12.0-18.0); LYMPH # 0.4 K/uL (1.0-4.3); LYMPH % 5.9 % (20.0-40.0); MEAN CELL VOLUME 91.7 fL (80.0-94.0); MEAN CORPUSCULAR HGB CONC 34.9 g/dL (33.0-37.0); MEAN PLATELET VOLUME 9.1 fL (7.2-11.7); MONO # 0.2 K/uL (0.0-0.8); MONO % 3.8 % (0.0-10.0); NEUT # 5.7 K/uL (1.8-7.0); NEUT % 89.8 % (50.0-75.0); PLATELET COUNT 130 K/uL (130-400); RBC 4.04 Mil/uL (4.40-5.90); RED CELL DISTRIBUTION WIDTH 13.7 % (11.5-14.5); WHITE BLOOD COUNT 6.3 K/uL (4.8-10.8)
[2018-04-10 11:16] LABS: ALB/GLOB RATIO 1.2 (1.0-2.1); ALT/SGPT 100 U/L (21-72); AST/SGOT 72 U/L (17-59); BLOOD UREA NITROGEN 13 mg/dL (9-20); GFR AFRICAN-AMERICAN > 60; GFR NON-AFRICAN AMERICAN > 60
[2018-04-10 11:23] LABS: BANDS 9 % (0-2); LYMPHOCYTE 3 % (20-40); MONOCYTE 3 % (0-10); NEUTROPHIL 85 % (50-75); PLATELET ESTIMATE NORMAL (NORMAL); TOTAL CELLS COUNTED 100
[2018-04-10] MEDS ORDERED: Iodixanol 320 MG/ML 100 ML BOTTLE IV ONE (11:52)
--- NOTE | 2018-04-10 11:52 | RAD ---
Date of service: 04/10/2018 HISTORY: Rule out possible pneumonia COMPARISON: Comparison chest 04/09/2018. TECHNIQUE: Chest PA and lateral FINDINGS: LUNGS: No active pulmonary disease. PLEURA: No significant pleural effusion identified. No pneumothorax apparent. CARDIOVASCULAR: Normal. OSSEOUS STRUCTURES: No significant abnormalities. VISUALIZED UPPER ABDOMEN: Normal. OTHER FINDINGS: None. IMPRESSION: No active disease.
--- NOTE | 2018-04-10 12:33 | PCM.PYCHPN ---
Psychiatric Progress Note - Psychiatric Progress Note Patient seen today, length of contact: 16 min Patient Chief Complaint: "So so" Problems Identified/Issues Discussed: The pt is seen, chart reviewed, case discussed with staff. The pt is compliant with medications and reports no side-effects. Symptoms are improving but needs more time to stabilize. After care discussed, support and psychoeducation given. They are trying to r/o endocarditis Medication Change: Yes (etox changes daily) Medical Record Reviewed: Yes Mental Status Examination - Cognitive Function Orientation: Person, Place, Situation, Time Memory: Intact Attention: WNL Concentration: WNL Association: WNL Fund of Knowledge: WNL - Mood Mood: Anxious - Affect Affect: Constricted - Speech Speech: Appropriate - Formal Thought Process Formal Thought Process: No Impairment - Suicidal Ideation Suicidal Ideation: No - Homicidal Ideation Homicidal Ideation: No Goal/Treatment Plan - Goal/Treatment Plan Need for Continued Stay: Discharge may exacerbated symptoms, Severe functional impairment Progress Toward Problem(s) and Goals/Treatment Plan: Continue medications Support and psychoeducation daily Attend groups and activities daily After care planning by GRIFFIN
--- NOTE | 2018-04-10 13:21 | CT ---
Date of service: 04/10/2018 PROCEDURE: CT Abdomen with and without intravenous contrast HISTORY: HCV, liver lesions on CT COMPARISON: None. TECHNIQUE: Axial images of the abdomen from lung bases to iliac crest with and without intravenous contrast enhancement. Postcontrast images were obtained in the hepatic arterial and portal venous phases of enhancement. Coronal and sagittal reformats generated. Oral contrast also administered. Intravenous contrast Dose: 100 mL Visipaque 320 Radiation dose: Total exam DLP = 818.52 mGy-cm. This CT exam was performed using one or more of the following dose reduction techniques: Automated exposure control, adjustment of the mA and/or kV according to patient size, and/or use of iterative reconstruction technique. FINDINGS: LOWER THORAX: Minimal linear scar/atelectasis in left lower lobe. Trace bilateral pleural effusion. LIVER: Multiple low-attenuation hepatic masses. There is a mass in the posterior right hepatic lobe measuring 3.4 cm. There is some nodular peripheral enhancement seen on portal venous phase images. This is suggestive of a hemangioma but not diagnostic without delayed images showing progressive centripetal enhancement. In the dome of the right hepatic lobe there is a 1.6 cm mass again showing some nodular peripheral enhancement suggestive of a hemangioma but not diagnostic. In the posterior right hepatic lobe there is a 10 mm nonspecific low-attenuation nodule demonstrating no enhancement on portal venous phase or arterial phase images. Please note that there is no early arterial phase enhancement identified. . The liver is smooth in contour. There is no biliary ductal dilatation. GALLBLADDER AND BILE DUCTS: Unremarkable. PANCREAS: Unremarkable. No gross lesion or ductal dilatation. SPLEEN: Unremarkable. ADRENALS: Unremarkable. No mass. KIDNEYS AND URETERS: Unremarkable. No hydronephrosis. No solid mass. VASCULATURE: Unremarkable. No aortic aneurysm. BOWEL: Unremarkable. No obstruction. No gross mural thickening. APPENDIX: Not included PERITONEUM: Ascites noted LYMPH NODES: Unremarkable. No enlarged lymph nodes. Bones No acute fracture. OTHER FINDINGS: None. IMPRESSION: Three hepatic masses as described. There is nodular peripheral enhancement seen in the 2 larger masses suggestive of but not diagnostic for hemangioma. Follow-up contrast-enhanced CT imaging is advised to exclude hepatocellular malignancy. Ascites. Minimal bilateral pleural effusion.
--- NOTE | 2018-04-10 14:36 | CP.PCM.CON ---
<Pop Billings - Last Filed: 04/10/18 15:09> History of Present Illness - History of Present Illness History of Present Illness: GI Fellow PGY4, Consult note. Consulted for abdominal pain, hepatic masses, Hepatitis C. Madan Martinez is a 32yo white male with history of polysubstance abuse presenting with abdominal pain and fever. Abdominal pain was reported to be in the RUQ but had resolved at the time of my exam. He denied nausea, vomiting and fevers as well. He admits to frequent use of heroin and cocaine as recently as 2 days ago. Work-up revealed hepatitis C infection which was new to him. He denies history of previous liver problems, weight loss. He admits passing flatus , BM two days ago and desire for food. PMHx - Polysubstance abuse, otherwise no chronic diseases. PSHx - None FMHx - Pancreatic cancer (mom) SocHx - heroin, cocaine, occasional tobacco, occasional alcohol 12pt ROS completed and negative except for above. Past Patient History - Infectious Disease Hx of Infectious Diseases: None - Past Social History Smoking Status: Heavy Smoker > 10 Cigarettes Daily - HEMATOLOGICAL/ONCOLOGICAL Hx Hepatitis C: Yes - PSYCHIATRIC Hx Substance Use: Yes (last use yesterday) - SURGICAL HISTORY Hx Surgeries: Yes Hx Orthopedic Surgery: Yes (jaw) - ANESTHESIA Hx Anesthesia: Yes Hx Anesthesia Reactions: No Meds Allergies/Adverse Reactions: Allergies Allergy/AdvReac Type Severity Reaction Status Date / Time No Known Allergies Allergy Verified 04/09/18 07:41 - Medications Medications: Current Medications Acetaminophen (Tylenol 325mg Tab) 650 mg PO Q6 PRN PRN Reason: Fever >100.4 F Last Admin: 04/10/18 00:09 Dose: 650 mg Sodium Chloride (Sodium Chloride 0.9%) 1,000 mls @ 125 mls/hr IV .Q8H FIDEL Last Admin: 04/10/18 07:12 Dose: Not Given Vancomycin/Sodium Chloride (Vancomycin 1 Gm/Ns 200 Ml) 1 gm in 200 mls @ 133 mls/hr IVPB Q12H FIDEL PRN Reason: Protocol Stop: 04/15/18 00:02 Last Admin: 04/10/18 13:19 Dose: 133 mls/hr Piperacillin Sod/Tazobactam (Sod 3.375 gm/ Sodium Chloride) 100 mls @ 200 mls/ hr IVPB Q6H FIDEL PRN Reason: Protocol Last Admin: 04/10/18 10:12 Dose: 200 mls/hr Methadone HCl (Methadone) 15 mg PO Q24H FIDEL PRN Reason: Taper Stop: 04/14/18 08:59 Last Admin: 04/10/18 08:24 Dose: 15 mg Pantoprazole Sodium (Protonix Inj) 40 mg IVP DAILY [facility] Last Admin: 04/10/18 10:13 Dose: 40 mg Trazodone HCl (Desyrel) 100 mg PO HS [facility] Last Admin: 04/09/18 21:16 Dose: 100 mg Physical Exam - Constitutional Appears: Well, Non-toxic, No Acute Distress - Eye Exam Eye Exam: EOMI, Normal appearance, PERRL - ENT Exam ENT Exam: Mucous Membranes Moist, Normal Exam - Respiratory Exam Respiratory Exam: Clear to Auscultation Bilateral, NORMAL BREATHING PATTERN. absent: Wheezes - Cardiovascular Exam Cardiovascular Exam: REGULAR RHYTHM, +S1, +S2. absent: Systolic Murmur - GI/Abdominal Exam GI & Abdominal Exam: Normal Bowel Sounds, Soft. absent: Organomegaly, Tenderness - Neurological Exam Neurological exam: Alert, CN II-XII Intact, Oriented x3 - Psychiatric Exam Psychiatric exam: Normal Affect, Normal Mood - Skin Skin Exam: Dry, Normal Color Results - Vital Signs Recent Vital Signs: Last Vital Signs Temp 98.1 F 04/10/18 07:00 Pulse 64 04/10/18 07:00 Resp 20 04/10/18 07:00 BP 129/79 04/10/18 07:00 Pulse Ox 97 04/10/18 09:05 - Labs Result Diagrams: 04/10/18 10:43 04/10/18 10:43 Labs: Laboratory Results - last 24 hr 04/09/18 04/09/18 04/09/18 13:06 13:06 13:23 WBC RBC Hgb Hct MCV MCH MCHC RDW Plt Count MPV Neut % (Auto) Lymph % (Auto) [place] % (Auto) Eos % (Auto) Baso % (Auto) Neut # (Auto) Lymph # (Auto) [place] # (Auto) Eos # (Auto) Baso # (Auto) Neutrophils % (Manual) Band Neutrophils % Lymphocytes % (Manual) Monocytes % (Manual) Platelet Estimate RBC Morphology Sodium Potassium Chloride Carbon Dioxide Anion Gap BUN Creatinine Est GFR ( Amer) Est GFR (Non-Af Amer) Random Glucose Calcium Total Bilirubin AST ALT Alkaline Phosphatase Total Protein Albumin Globulin Albumin/Globulin Ratio Procalcitonin 12.52 H Hepatitis C Antibody Reactive HIV 1&2 Antibody Screen Negative Mycoplasma pneumon IgM Negative 04/10/18 04/10/18 10:43 10:43 WBC 6.3 RBC 4.04 L Hgb 12.9 Hct 37.1 MCV 91.7 MCH 32.0 H MCHC 34.9 RDW 13.7 Plt Count 130 MPV 9.1 Neut % (Auto) 89.8 H Lymph % (Auto) 5.9 L [place] % (Auto) 3.8 Eos % (Auto) 0.1 Baso % (Auto) 0.4 Neut # (Auto) 5.7 Lymph # (Auto) 0.4 L [place] # (Auto) 0.2 Eos # (Auto) 0.0 Baso # (Auto) 0.0 Neutrophils % (Manual) 85 H Band Neutrophils % 9 H Lymphocytes % (Manual) 3 L Monocytes % (Manual) 3 Platelet Estimate Normal RBC Morphology Normal Sodium 140 Potassium 3.7 Chloride 106 Carbon Dioxide 24 Anion Gap 14 BUN 13 Creatinine 0.7 L Est GFR ( Amer) > 60 Est GFR (Non-Af Amer) > 60 Random Glucose 114 H Calcium 8.0 L Total Bilirubin 1.8 H AST 72 H D ALT 100 H D Alkaline Phosphatase 81 Total Protein 5.4 L Albumin 3.0 L D Globulin 2.4 Albumin/Globulin Ratio 1.2 Procalcitonin Hepatitis C Antibody HIV 1&2 Antibody Screen Mycoplasma pneumon IgM Assessment & Plan - Assessment and Plan (Free Text) Assessment: 32M with polysubstance abuse presenting with abdominal pain, fever and found to have bacteremia, multiple hepatic masses, new Hep. C. #Hepatic masses - DDx cysts, abscess, HCC, hemangioma etc. #Hepatitis C - new diagnosis #Ascites - Unclear etiology. No signs of cirrhosis on imaging #Sepsis #Abdominal pain Plan: -Continue supportive care -CT and Abd u/s imaging reviewed and noted abnormalities -Advance diet to clear liquid -Monitor blood cultures, growing GNRs. Continue IV Abx per ID. -Follow-up imaging of hepatic masses with dedicated liver CT with and without contrast. -Outpatient follow-up for Hepatitis C infection. -Advised to discontinue illicit drug use. -No procedures planned at this time. -Further recommendations pending clinical course and imaging studies. - Date & Time Date: 04/10/18 Time: 14:41 <Misael Del Cid Y - Last Filed: 04/10/18 17:46> Meds - Medications Medications: Current Medications Acetaminophen (Tylenol 325mg Tab) 650 mg PO Q6 PRN PRN Reason: Fever >100.4 F Last Admin: 04/10/18 00:09 Dose: 650 mg Sodium Chloride (Sodium Chloride 0.9%) 1,000 mls @ 125 mls/hr IV .Q8H FIDEL Last Admin: 04/10/18 07:12 Dose: Not Given Vancomycin/Sodium Chloride (Vancomycin 1 Gm/Ns 200 Ml) 1 gm in 200 mls @ 133 mls/hr IVPB Q12H FIDEL PRN Reason: Protocol Stop: 04/15/18 00:02 Last Admin: 04/10/18 13:19 Dose: 133 mls/hr Piperacillin Sod/Tazobactam (Sod 3.375 gm/ Sodium Chloride) 100 mls @ 200 mls/ hr IVPB Q6H FIDEL PRN Reason: Protocol Last Admin: 04/10/18 17:16 Dose: 200 mls/hr Methadone HCl (Methadone) 15 mg PO Q24H FIDEL PRN Reason: Taper Stop: 04/14/18 08:59 Last Admin: 04/10/18 08:24 Dose: 15 mg Pantoprazole Sodium (Protonix Inj) 40 mg IVP DAILY [facility] Last Admin: 04/10/18 10:13 Dose: 40 mg Trazodone HCl (Desyrel) 100 mg PO HS [facility] Last Admin: 04/09/18 21:16 Dose: 100 mg Results - Vital Signs Recent Vital Signs: Last Vital Signs Temp 98.6 F 04/10/18 15:09 Pulse 67 04/10/18 15:51 Resp 20 04/10/18 15:09 BP 117/76 04/10/18 15:09 Pulse Ox 99 04/10/18 15:09 - Labs Result Diagrams: 04/10/18 10:43 04/10/18 10:43 Labs: Laboratory Results - last 24 hr 04/09/18 04/10/18 04/10/18 13:23 10:43 10:43 WBC 6.3 RBC 4.04 L Hgb 12.9 Hct 37.1 MCV 91.7 MCH 32.0 H MCHC 34.9 RDW 13.7 Plt Count 130 MPV 9.1 Neut % (Auto) 89.8 H Lymph % (Auto) 5.9 L [place] % (Auto) 3.8 Eos % (Auto) 0.1 Baso % (Auto) 0.4 Neut # (Auto) 5.7 Lymph # (Auto) 0.4 L [place] # (Auto) 0.2 Eos # (Auto) 0.0 Baso # (Auto) 0.0 Neutrophils % (Manual) 85 H Band Neutrophils % 9 H Lymphocytes % (Manual) 3 L Monocytes % (Manual) 3 Platelet Estimate Normal RBC Morphology Normal Sodium 140 Potassium 3.7 Chloride 106 Carbon Dioxide 24 Anion Gap 14 BUN 13 Creatinine 0.7 L Est GFR ( Amer) > 60 Est GFR (Non-Af Amer) > 60 Random Glucose 114 H Calcium 8.0 L Total Bilirubin 1.8 H AST 72 H D ALT 100 H D Alkaline Phosphatase 81 Total Protein 5.4 L Albumin 3.0 L D Globulin 2.4 Albumin/Globulin Ratio 1.2 Alpha Fetoprotein Procalcitonin 12.52 H Mycoplasma pneumon IgM Negative 04/10/18 13:55 WBC RBC Hgb Hct MCV MCH MCHC RDW Plt Count MPV Neut % (Auto) Lymph % (Auto) [place] % (Auto) Eos % (Auto) Baso % (Auto) Neut # (Auto) Lymph # (Auto) [place] # (Auto) Eos # (Auto) Baso # (Auto) Neutrophils % (Manual) Band Neutrophils % Lymphocytes % (Manual) Monocytes % (Manual) Platelet Estimate RBC Morphology Sodium Potassium Chloride Carbon Dioxide Anion Gap BUN Creatinine Est GFR ( Amer) Est GFR (Non-Af Amer) Random Glucose Calcium Total Bilirubin AST ALT Alkaline Phosphatase Total Protein Albumin Globulin Albumin/Globulin Ratio Alpha Fetoprotein 2.1 Procalcitonin Mycoplasma pneumon IgM Attending/Attestation - Attestation I have personally seen and examined this patient.: Yes I have fully participated in the care of the patient.: Yes I have reviewed all pertinent clinical information: Yes Notes (Text): 04/10/18 17:41 I have seen and examined patient with GI fellow. Agree with above documentation with the following additions. In brief, this is a 32 year old male with history of polysubstance abuse who presents to hospital with sudden onset abdominal pain which started yesterday. Prior to this he was in usual state of health. He describes having sharp epigastric and RUQ abdominal pain along with subjective fever/chills. He admits to ongoing substance abuse ( heroin/cocaine). Since arrival to hospital his abdominal pain has resolved and he denies nausea, vomiting, diarrhea, fever/chills, weight loss, rectal bleeding , jaundice, pruritis, or change in bowel habits. No prior endoscopic evaluation. Polysubstance abuse Abdominal pain, fever Sepsis - bacteremia Transaminitis HCV, newly diagnosed, treatment naive Hepatic lesions - Liver CT reviewed by me showing potential hemangiomas as etiology of liver lesions, though not definitive. Will need to review with radiology. - Clear liquid diet as tolerated - Continue to monitor LFTs, obtain AFP - Follow up surgical recommendations for potential cholecystitis - GB edema present on US imaging - Continue with antibiotic therapy as per ID - Patient not a candidate for HCV therapy due to ongoing substance abuse - Will continue to monitor patient clinical course
--- NOTE | 2018-04-10 14:48 | CP.PCM.CON ---
History of Present Illness - History of Present Illness History of Present Illness: General surgery consult for Dr. Phelan Reason for consult: abdominal pain 32M with PMHx of IV drug abuse presents to [facility] with constant achy epigastric pain without radiation that started 1 day ago. Patient presented to the ED after experiencing fever, chills, and profuse sweating 4-5 hours after the epigastric pain started worsening. He reports associated nausea without vomiting upon admission. He reports no pain at this time. Patient has no complaints. PMHx - IV drug abuse/polysubstance abuse PSHx - broken jaw repair Allergies - NKDA Past Hospitalization - denies Social History: - drinks 4-5 beers on the weekends - smokes 5 cigarettes/day for 15+ years - smokes marijuana daily - injects 3 grams heroin/day Review of Systems - Constitutional Constitutional: absent: Chills, Fever, Night Sweats - Gastrointestinal Gastrointestinal: absent: Abdominal Pain, Constipation, Diarrhea, Vomiting Past Patient History - Infectious Disease Hx of Infectious Diseases: None - Past Social History Smoking Status: Heavy Smoker > 10 Cigarettes Daily - HEMATOLOGICAL/ONCOLOGICAL Hx Hepatitis C: Yes - PSYCHIATRIC Hx Substance Use: Yes (last use yesterday) - SURGICAL HISTORY Hx Surgeries: Yes Hx Orthopedic Surgery: Yes (jaw) - ANESTHESIA Hx Anesthesia: Yes Hx Anesthesia Reactions: No Meds Allergies/Adverse Reactions: Allergies Allergy/AdvReac Type Severity Reaction Status Date / Time No Known Allergies Allergy Verified 04/09/18 07:41 - Medications Medications: Current Medications Acetaminophen (Tylenol 325mg Tab) 650 mg PO Q6 PRN PRN Reason: Fever >100.4 F Last Admin: 04/10/18 00:09 Dose: 650 mg Sodium Chloride (Sodium Chloride 0.9%) 1,000 mls @ 125 mls/hr IV .Q8H FIDEL Last Admin: 04/10/18 07:12 Dose: Not Given Vancomycin/Sodium Chloride (Vancomycin 1 Gm/Ns 200 Ml) 1 gm in 200 mls @ 133 mls/hr IVPB Q12H FIDEL PRN Reason: Protocol Stop: 04/15/18 00:02 Last Admin: 04/10/18 13:19 Dose: 133 mls/hr Piperacillin Sod/Tazobactam (Sod 3.375 gm/ Sodium Chloride) 100 mls @ 200 mls/ hr IVPB Q6H FIDEL PRN Reason: Protocol Last Admin: 04/10/18 10:12 Dose: 200 mls/hr Methadone HCl (Methadone) 15 mg PO Q24H FIDEL PRN Reason: Taper Stop: 04/14/18 08:59 Last Admin: 04/10/18 08:24 Dose: 15 mg Pantoprazole Sodium (Protonix Inj) 40 mg IVP [facility]ILY [facility] Last Admin: 04/10/18 10:13 Dose: 40 mg Trazodone HCl (Desyrel) 100 mg PO HS [facility] Last Admin: 04/09/18 21:16 Dose: 100 mg Physical Exam - Constitutional Appears: Well, No Acute Distress - Eye Exam Eye Exam: EOMI. absent: Conjunctival injection, Periorbital swelling - ENT Exam ENT Exam: Mucous Membranes Moist. absent: Mucous Membranes Dry - Respiratory Exam Respiratory Exam: NORMAL BREATHING PATTERN. absent: Prolonged Expiratory Phase , Respiratory Distress - Cardiovascular Exam Cardiovascular Exam: REGULAR RHYTHM. absent: Bradycardia - GI/Abdominal Exam GI & Abdominal Exam: Normal Bowel Sounds, Soft. absent: Distended, Guarding, Rebound - Rectal Exam Rectal Exam: Deferred - Extremities Exam Extremities exam: Positive for: normal inspection. Negative for: calf tenderness - Neurological Exam Neurological exam: Alert, Normal Gait, Oriented x3 - Psychiatric Exam Psychiatric exam: Normal Affect, Normal Mood Results - Vital Signs Recent Vital Signs: Last Vital Signs Temp 98.1 F 04/10/18 07:00 Pulse 64 04/10/18 07:00 Resp 20 04/10/18 07:00 BP 129/79 04/10/18 07:00 Pulse Ox 97 04/10/18 09:05 - Labs Result Diagrams: 04/10/18 10:43 04/10/18 10:43 Labs: Laboratory Results - last 24 hr 04/09/18 04/09/18 04/10/18 13:06 13:23 10:43 WBC RBC Hgb Hct MCV MCH MCHC RDW Plt Count MPV Neut % (Auto) Lymph % (Auto) [place] % (Auto) Eos % (Auto) Baso % (Auto) Neut # (Auto) Lymph # (Auto) [place] # (Auto) Eos # (Auto) Baso # (Auto) Neutrophils % (Manual) Band Neutrophils % Lymphocytes % (Manual) Monocytes % (Manual) Platelet Estimate RBC Morphology Sodium 140 Potassium 3.7 Chloride 106 Carbon Dioxide 24 Anion Gap 14 BUN 13 Creatinine 0.7 L Est GFR ( Amer) > 60 Est GFR (Non-Af Amer) > 60 Random Glucose 114 H Calcium 8.0 L Total Bilirubin 1.8 H AST 72 H D ALT 100 H D Alkaline Phosphatase 81 Total Protein 5.4 L Albumin 3.0 L D Globulin 2.4 Albumin/Globulin Ratio 1.2 Procalcitonin 12.52 H Hepatitis C Antibody Reactive Mycoplasma pneumon IgM Negative 04/10/18 10:43 WBC 6.3 RBC 4.04 L Hgb 12.9 Hct 37.1 MCV 91.7 MCH 32.0 H MCHC 34.9 RDW 13.7 Plt Count 130 MPV 9.1 Neut % (Auto) 89.8 H Lymph % (Auto) 5.9 L [place] % (Auto) 3.8 Eos % (Auto) 0.1 Baso % (Auto) 0.4 Neut # (Auto) 5.7 Lymph # (Auto) 0.4 L [place] # (Auto) 0.2 Eos # (Auto) 0.0 Baso # (Auto) 0.0 Neutrophils % (Manual) 85 H Band Neutrophils % 9 H Lymphocytes % (Manual) 3 L Monocytes % (Manual) 3 Platelet Estimate Normal RBC Morphology Normal Sodium Potassium Chloride Carbon Dioxide Anion Gap BUN Creatinine Est GFR ( Amer) Est GFR (Non-Af Amer) Random Glucose Calcium Total Bilirubin AST ALT Alkaline Phosphatase Total Protein Albumin Globulin Albumin/Globulin Ratio Procalcitonin Hepatitis C Antibody Mycoplasma pneumon IgM Assessment & Plan - Assessment and Plan (Free Text) Assessment: 32M presents with mid epigastric pain; CT reveals liver lesions, serology positive for Hep C antibody Plan: liquid diet ADAT f/u GI recs Hep C positive with liver lesions - needs proper work-up clinical picture likely due to liver etiology no surgical intervention needed at this further recs as per Dr. Zhane Ortiz PGY-2
--- NOTE | 2018-04-10 17:09 | CARD ---
APPROVED REPORT Date of service: 04/09/2018 EKG Measurement Heart [id number] <Conclusion> Normal sinus rhythm Normal ECG
--- NOTE | 2018-04-10 23:08 | CARD ---
APPROVED REPORT Date of service: 04/10/2018 EXAM: Two-dimensional and M-mode echocardiogram with Doppler and color Doppler. Other Information Quality : GoodRhythm : INDICATION Infection:Rule out subacute bacterial endocarditis Palpitations Drug Abuse 2D DIMENSIONS IVSd0.8 (0.7-1.1cm)Aortic Root (2D)2.9 (2.0-3.7cm) LVDd5.5 (3.9-5.9cm)PWd1.0 (0.7-1.1cm) LVDs3.7 (2.5-4.0cm)FS (%) 33.3 % LVEF (%)61.3 (>50%) M-Mode DIMENSIONS RVDd2.31 (2.1-3.2cm)Left Atrium (MM)3.86 (2.5-4.0cm) IVSd1.01 (0.7-1.1cm)Aortic Root3.01 (2.2-3.7cm) LVDd5.89 (4.0-5.6cm)Aortic Cusp Exc.2.41 (1.5-2.0cm) PWd0.91 (0.7-1.1cm)FS (%) 40 % LVDs3.51 (2.0-3.8cm)LVEF (%)70 (>50%) Mitral Valve MV E Qprjjfrl32.4cm/sMV A Ewhcsaba25.8cm/sE/A ratio3.2 TDI E/Lateral E'0.0E/Medial E'0.0 Tricuspid Valve TR Peak [id number]/sTR Peak [id number] LEFT VENTRICLE The Left Ventricle is mildly dilated. There is normal left ventricular wall thickness. Left ventricle systolic function is normal. The Ejection Fraction is 70%. There is normal LV segmental wall motion. The left ventricular diastolic function is normal. No left ventricle thrombus noted on this study. RIGHT VENTRICLE The right ventricle is normal size. The right ventricular systolic function is normal. ATRIA The left atrium size is normal. The right atrium size is normal. AORTIC VALVE The aortic valve is thickened. The aortic valve is trileaflet. No aortic regurgitation is present. There is no aortic valvular stenosis. There is no aortic valvular vegetation. MITRAL VALVE Mitral annular calcification is mild. There is no evidence of mitral valve prolapse. There is no mitral valve stenosis. Mitral regurgitation is mild. TRICUSPID VALVE The tricuspid valve is normal in structure. There is mild to moderate tricuspid regurgitation. Right ventricular systolic pressure is estimated at less than 30 mmHg. There is no pulmonary hypertension. There is no tricuspid valve prolapse or vegetation. There is no tricuspid valve stenosis. PULMONIC VALVE The pulmonic valve is not well visualized. There is mild pulmonic valvular regurgitation. GREAT VESSELS The aortic root is normal in size. The ascending aorta is normal in size. The pulmonary artery is normal. The IVC is normal in size and collapses <50% with inspiration. PERICARDIAL EFFUSION There is no pericardial effusion. There is no pleural effusion. <Conclusion> The Left Ventricle is mildly dilated. Left ventricle systolic function is normal. The Ejection Fraction is 70%. Mitral regurgitation is mild. There is mild to moderate tricuspid regurgitation. There is mild pulmonic valvular regurgitation.
[2018-04-11] MEDS: Vancomycin 1 gm/NS 200 ml 1 GM/200 ML BAG IVPB SCH ×2 (00:30→11:55)
--- NOTE | 2018-04-11 00:51 | PN ---
DATE: 04/10/2018 INFECTIOUS DISEASE FOLLOWUP SUBJECTIVE: I went to see the patient. He shows me his arms and he did come in with abdominal pain, and his cultures have come out gram negative in the blood, and he also has hepatitis C infection, but he wanted to eat, and he did not look toxic today. PHYSICAL EXAMINATION: VITAL SIGNS: Showed T-max is 98.6, pulse 55, blood pressure 117/76, respirations are 20. HEENT: Head is atraumatic, normocephalic. NECK: Supple. LUNGS: Clear. No crackles or rales present. HEART: S1, S2 are regular. ABDOMEN: Soft. No guarding, no rigidity, no tenderness today. EXTREMITIES: Have no edema. LABORATORY DATA: His white count is 6.3, hemoglobin 12.9, hematocrit is 37.1, platelet count is 170. BUN is 13, creatinine is 0.7. UA was negative. He does have opioids. HIV test was negative. Hep C is positive. He is an IV drug abuser and drug screen was positive, and blood cultures are gram negative ana maria. Further ID and sensitivity is pending. At this time, he is afebrile on the present medications, so we will continue with vancomycin and Zosyn at this time. We are also waiting for the echo report, and he had a liver CT done, and liver CT they have read as multiple low attenuation hepatic masses. There is a mass in the posterior right hepatic lobe, measuring 3.4 cm. There is a small nodular peripheral enhancement seen in the portal venous phase that is suggestive of hemangioma but not diagnostic without delayed images showing progressive centripetal enhancement in the dome of the right hepatic lobe. There is a 1.6 cm mass again showing some nodular peripheral enhancement suggestive of hemangioma but not diagnostic. In the right posterior hepatic lobe, there is a 10 mm nonspecific low attenuated nodule. In light of having blood cultures positive, I would think he had liver abscesses, and we will see what the ID and sensitivity comes out and would like to see the echo report, and at this time, I would add gentamicin also pending the culture report. We will follow. The creatinine is 0.7 and liver enzymes are elevated probably due to sepsis as he did have lactic acidosis and came in with procalcitonin level of 12.52 with sepsis syndrome. Ishan Mo MD [facility] # [id number]
[2018-04-11] MEDS: Piperacillin/Tazobact 3.375 GM in Sodium Chloride 100 ML IVPB SCH ×4 (04:31→21:23)
[2018-04-11] MEDS: Sodium Chloride 0.9% 1,000 ML IV SCH ×2 (04:35→05:34)
--- NOTE | 2018-04-11 06:21 | CP.PCM.PN ---
<Francisco Cam M - Last Filed: 04/11/18 17:52> Subjective - Date & Time of Evaluation Date of Evaluation: 04/11/18 Time of Evaluation: 07:10 - Subjective Subjective: PGY [address] Vieyra. Patient seen and examined by bedside. No overnight events. Patient spiked no fevers. Patient denies chest pain, shortness of breath, nausea, vomiting, constipation, abdominal pain. Patient informed he will need further workup, possible GLORIA, since his echo was negative for vegetations. Patient concerned greater for discharge date. I was paged approximately 1:00pm that patient was possibly wanting to leave AMA. Patient was informed of the risk of leaving AMA and stated he barfield stay for now. Objective - Vital Signs/Intake and Output Vital Signs (last 24 hours): Temp Pulse Resp BP Pulse Ox 98.5 F 53 L 20 124/76 98 04/10/18 23:10 04/11/18 00:10 04/10/18 23:10 04/10/18 23:10 04/11/18 01:34 Intake and Output: 04/10/18 04/11/18 18:59 06:59 Intake Total 1200 Output Total 1450 Balance -250 - Medications Medications: Current Medications Acetaminophen (Tylenol 325mg Tab) 650 mg PO Q6 PRN PRN Reason: Fever >100.4 F Last Admin: 04/10/18 00:09 Dose: 650 mg Sodium Chloride (Sodium Chloride 0.9%) 1,000 mls @ 125 mls/hr IV .Q8H [facility] Last Admin: 04/11/18 05:34 Dose: 125 mls/hr Vancomycin/Sodium Chloride (Vancomycin 1 Gm/Ns 200 Ml) 1 gm in 200 mls @ 133 mls/hr IVPB Q12H [facility] PRN Reason: Protocol Stop: 04/15/18 00:02 Last Admin: 04/11/18 00:30 Dose: 133 mls/hr Piperacillin Sod/Tazobactam (Sod 3.375 gm/ Sodium Chloride) 100 mls @ 200 mls/ hr IVPB Q6H [facility] PRN Reason: Protocol Last Admin: 04/11/18 04:31 Dose: 200 mls/hr Gentamicin Sulfate 80 mg/ (Sodium Chloride) 102 mls @ 100 mls/hr IVPB Q8H [facility] PRN Reason: Protocol Last Admin: 04/11/18 03:15 Dose: 100 mls/hr Methadone HCl (Methadone) 15 mg PO Q24H [facility] PRN Reason: Taper Stop: 04/14/18 08:59 Last Admin: 04/10/18 08:24 Dose: 15 mg Pantoprazole Sodium (Protonix Inj) 40 mg IVP DAILY [facility] Last Admin: 04/10/18 10:13 Dose: 40 mg Trazodone HCl (Desyrel) 100 mg PO HS [facility] Last Admin: 04/10/18 21:15 Dose: 100 mg - Labs Labs: 04/10/18 10:43 04/10/18 10:43 PT 14.4 SECONDS (9.7-12.2) H 04/09/18 08:15 INR 1.3 04/09/18 08:15 APTT 30 SECONDS (21-34) 04/09/18 08:15 - Constitutional Appears: Well, Non-toxic, No Acute Distress - Head Exam Head Exam: ATRAUMATIC, NORMAL INSPECTION, NORMOCEPHALIC - Eye Exam Eye Exam: EOMI, Normal appearance, PERRL Pupil Exam: NORMAL ACCOMODATION - ENT Exam ENT Exam: Mucous Membranes Moist - Neck Exam Neck Exam: Full ROM, Normal Inspection Additional comments: Patient has multiple tattoos extending upto neck. - Respiratory Exam Respiratory Exam: Clear to Ausculation Bilateral, NORMAL BREATHING PATTERN. absent: Rales, Rhonchi, Wheezes - Cardiovascular Exam Cardiovascular Exam: +S1, +S2. absent: Irregular Rhythm, Murmur - GI/Abdominal Exam GI & Abdominal Exam: Soft, Normal Bowel Sounds. absent: Firm, Guarding, Rigid - Extremities Exam Extremities Exam: Full ROM, Normal Inspection. absent: Calf Tenderness, Pedal Edema Additional comments: Patient has track green on right forearm. B/L LE no edema, pulses in tact. - Neurological Exam Neurological Exam: Alert, Awake, Oriented x3 - Psychiatric Exam Psychiatric exam: Normal Affect, Normal Mood - Skin Skin Exam: Dry, Intact, Normal Color, Warm Assessment and Plan - Assessment and Plan (Free Text) Assessment: 32 year old male w/ polysubstance use disorder (IV heroin & cocaine) presented to ED for abdominal pain: 1) SIRS 04/11 - no fevers overnight - echo results: Left ventricular hypertrophy w/ EF 70% Mitral valve, tricuspid, pulmonary valve regurgitation - cannot r/o endocarditis, Dr. Smallwood, cardio consulted - continue telemetry - 04/09 cultures -neg. gram rods - 04/10 cultures - no growth - per ID gentamicin 80mg 04/10, zosyn gm 04/09, vancomycin 1gm 04/09 04/10 - overnight fever spikes of 101.2F, f/u cultures - 24 hrs cultures - gram negative rods - UA culture negative - on gentamicin 80mg 04/10, zosyn gm 04/09, vancomycin 1gm 04/09 04/09 - monitor on telemetry - Criteria: Tmax: 102.8 F, lactate 2.4 -. 1.2 - IV abx: zosyn 3.375 g IV Q6 (active since 04/09/18) vancomyocin 1g IV Q 12 (active since 04/09 @ 12 noon, vanc troph due 11:30 PM 04/10) - Chest xray - no active disease, repeat chest Pa/ Lateral 04/10 - Pending blood cultures X2 - Pending UA & UC - Procalution 04/09 - 12.52, f/u 04/11 - Tylenol 650 mg PO Q6H PRN for fever - ID Dr. Bernabe on board - Legionella, strep pneumonia, mycoplasma IgM 2) History of IV Drug use - HIV - negative - Hep C - reactive- explained to patient in detail of results - Echocardiogram: see above 3) Mild R arm swelling/ lymphagitis - track green over R upper extremity - U/S reveals no abscess 4) Abdominal pain - Lipase - normal - Alpha fetoprotein normal at 2.1 - CT liver - 3 hepatic masses, nodular peripheral enhancement seen in 2 large masses suggestive of but diagnostic for hemagioma, must exclude hepatocellular malignancy - CT abd/pel: non specific hepatic hypodense not as cysts largest posterior R hepatic lobe ~3.5 cm, gallbladder edema - U/S gallbladder thickening, no stones present - GI reviewed results, believe likely hemangioma, recs 3 month follow up, avoid biopsy unless mass is grwing 5) Polysubstance abuse - psych management of withdrawal - on methadone taper - + cocaine, + marijuana, + heroin - DO not give beta- blockers 6) Propylactic measure - protonix 40mg IV Q daily - SCDs b/l LE - Aspiration precautions - Seizure precautions - IV fluids: NS 125cc/hr - per GI - advance diet <Shayy Vieyra V - Last Filed: 04/15/18 00:43> Objective - Vital Signs/Intake and Output Vital Signs (last 24 hours): Temp Pulse Resp BP Pulse Ox 98.6 F 60 20 137/84 98 04/11/18 23:20 04/12/18 07:20 04/11/18 23:20 04/11/18 23:20 04/11/18 23:20 - Labs Labs: 04/12/18 06:21 04/12/18 06:21 PT 14.4 SECONDS (9.7-12.2) H 04/09/18 08:15 INR 1.3 04/09/18 08:15 APTT 30 SECONDS (21-34) 04/09/18 08:15 Attending/Attestation - Attestation I have personally seen and examined this patient.: Yes I have fully participated in the care of the patient.: Yes I have reviewed all pertinent clinical information, including history, physical exam and plan: Yes Notes (Text): This is late computer entry for 04/11/18. Patient seen, examined and case discussed with day-time resident. Cardiology consulted for possible GLORIA in light of bacteremia with IV drug use history. We have discussed with patient that he will likely need IV abx to cover for blood infection and advised to not leave against medical advice. 1) SIRS Bacteremia Assessment/Plan * monitor on telemetry * ID Dr. Mo on board-->help appreciated * Criteria: Tmax: 102.8 F, lactate 2.4 -. 1.2 * IV abx: zosyn 3.375 g IV Q6 (active since 04/09/18) vancomycin 1g IV Q 12 (active since 04/09 @ 12 noon, vanc troph due 11:30 PM 04/10) Start Gentamicin by ID given bacteremia * Chest xray - no active disease, r * Chest Pa/ Lateral 04/10: no active disease * Blood cultures (04/09/18): gram negative rods X2 * Blood cultures (04/11/18): no growth * Procalcition: 12.52-->8.31 * Tylenol 650 mg PO Q6H PRN for fever * Pending Legionella, strep pneumonia, mycoplasma IgM 2) History of IV Drug use Hepatitis C AB + Assessment/Plan * 04/10: discussed with patient and girlfriend in regards to Hep C Ab+ likely secondary to IV drug use; education provided to transfer of body fluids/blood fluids; advised to not share needles and advised to follow-up outpatient doctor for possible treatment if confirmed with additional blood testing * HIV negative * Echocardiogram (04/10/18): left ventricle is mildly dilated. left ventricle systolic function is normal. Ejection fraction is 70%. Mitral regurgitation is mild. Mild to moderate tricuspid regurgitation and mild pulmonic valvular regurgitation * Cardiology consulted for possible GLORIA 3) Mild R arm swelling/ lymphagitis Assessment/Plan * track green over R upper extremity noted on admission * non extremity US (right) r/o abscess (04/10): no sonographic evidence of abscess 4) Abdominal pain Assessment/Plan * General surgery (Dr. Phelan) quality control industrial engineer-->help appreciated * no surgical intervention * GI (Dr. Del Cid) quality control industrial engineer-->help appreciated * Liver CT reviewed by me showing potential hemangiomas as etiology of liver lesions, though not definitive. Will need to review with radiology. * Clear liquid diet as tolerated * Patient not a candidate for HCV therapy due to ongoing substance abuse * Lipase - normal * CT abd/pel: non specific hepatic hypodense not as cysts largest posterior R hepatic lobe ~3.5 cm, gallbladder edema * Abdominal US (04/09/18): confirmation multiple hepatic masses. Gallbladder wall thickening without stones or other pathologies. * Diet advanced to liquid after discussions with both GI and general surgery 5) Polysubstance abuse Assessment/Plan * Psychiatry (Dr. Guajardo) on case help appreciated * psych management of withdrawal * + cocaine, + marijuana, + heroin * DO not give beta- blockers * Seizure precautions 6) Propylactic measure * protonix 40mg IV Q daily * SCDs b/l LE * Aspiration precautions * Seizure precautions * IV fluids: NS 125cc/hr * Diet advanced to liquid
--- NOTE | 2018-04-11 06:23 | CP.PCM.PN ---
<Pop Billings - Last Filed: 04/11/18 08:48> Subjective - Date & Time of Evaluation Date of Evaluation: 04/11/18 Time of Evaluation: 06:22 - Subjective Subjective: GI Fellow PGY4, progress note. Patient seen and examined at bedside. No acute overnight events. Afebrile. Tolerating diet. Denies constipation. On IV abx. 12pt ROS completed and negative except for above. Objective - Vital Signs/Intake and Output Vital Signs (last 24 hours): Temp Pulse Resp BP Pulse Ox 98.5 F 53 L 20 124/76 98 04/10/18 23:10 04/11/18 00:10 04/10/18 23:10 04/10/18 23:10 04/11/18 01:34 Intake and Output: 04/10/18 04/11/18 18:59 06:59 Intake Total 1200 Output Total 1450 Balance -250 - Medications Medications: Current Medications Acetaminophen (Tylenol 325mg Tab) 650 mg PO Q6 PRN PRN Reason: Fever >100.4 F Last Admin: 04/10/18 00:09 Dose: 650 mg Sodium Chloride (Sodium Chloride 0.9%) 1,000 mls @ 125 mls/hr IV .Q8H [facility] Last Admin: 04/11/18 05:34 Dose: 125 mls/hr Vancomycin/Sodium Chloride (Vancomycin 1 Gm/Ns 200 Ml) 1 gm in 200 mls @ 133 mls/hr IVPB Q12H [facility] PRN Reason: Protocol Stop: 04/15/18 00:02 Last Admin: 04/11/18 00:30 Dose: 133 mls/hr Piperacillin Sod/Tazobactam (Sod 3.375 gm/ Sodium Chloride) 100 mls @ 200 mls/ hr IVPB Q6H [facility] PRN Reason: Protocol Last Admin: 04/11/18 04:31 Dose: 200 mls/hr Gentamicin Sulfate 80 mg/ (Sodium Chloride) 102 mls @ 100 mls/hr IVPB Q8H [facility] PRN Reason: Protocol Last Admin: 04/11/18 03:15 Dose: 100 mls/hr Methadone HCl (Methadone) 15 mg PO Q24H [facility] PRN Reason: Taper Stop: 04/14/18 08:59 Last Admin: 04/10/18 08:24 Dose: 15 mg Pantoprazole Sodium (Protonix Inj) 40 mg IVP DAILY [facility] Last Admin: 04/10/18 10:13 Dose: 40 mg Trazodone HCl (Desyrel) 100 mg PO HS [facility] Last Admin: 04/10/18 21:15 Dose: 100 mg - Labs Labs: 04/10/18 10:43 04/10/18 10:43 PT 14.4 SECONDS (9.7-12.2) H 04/09/18 08:15 INR 1.3 04/09/18 08:15 APTT 30 SECONDS (21-34) 04/09/18 08:15 - Constitutional Appears: Well, Non-toxic, No Acute Distress - Head Exam Head Exam: ATRAUMATIC, NORMAL INSPECTION, NORMOCEPHALIC - Eye Exam Eye Exam: EOMI, Normal appearance - ENT Exam ENT Exam: Mucous Membranes Moist, Normal Exam - Respiratory Exam Respiratory Exam: Clear to Ausculation Bilateral, NORMAL BREATHING PATTERN. absent: Wheezes - Cardiovascular Exam Cardiovascular Exam: REGULAR RHYTHM, +S1, +S2 - GI/Abdominal Exam GI & Abdominal Exam: Soft, Normal Bowel Sounds. absent: Tenderness - Extremities Exam Extremities Exam: Normal Inspection - Neurological Exam Neurological Exam: Alert, Awake, CN II-XII Intact, Normal Gait, Oriented x3 - Psychiatric Exam Psychiatric exam: Normal Affect, Normal Mood - Skin Skin Exam: Dry, Normal Color Assessment and Plan - Assessment and Plan (Free Text) Assessment: 32M with polysubstance abuse presenting with abdominal pain, fever and found to have bacteremia, multiple hepatic masses, new Hep. C. #Hepatic masses - likely hemangioma. Possible abscess. Doubt HCC, but needs outpt follow up. #Hepatitis C - new diagnosis #Ascites - Unclear etiology. No signs of cirrhosis on imaging #Sepsis #Abdominal pain Plan: -Continue supportive care -CT and Abd u/s imaging reviewed and noted abnormalities -Liver CT w/wo contrast showing signs of hemangioma, but not diagnostic. -AFP negative -Continue to follow LFTs. -Advance diet to regular -Monitor blood cultures, growing GNRs. Continue IV Abx per ID. -Outpatient follow-up for Hepatitis C infection. Encouraged to avoid drug use, otherwise not a candidate for treatment. -Outpt follow up with PMD for abnormal LFTs -No procedures planned at this time. -Discussed case with radiologist who read report and follow-up "Multiphasic dedicated hemangioma CT" recommended at 3 months. This will diagnose the hemangioma as well as identify any growing lesions concerning for HCC. Avoid biopsy, unless mass is growing. Follow-up Gadolinium MRI may also be helpful, however, expensive. -No further inpatient GI needs. We will signoff at this time. Please reconsult for any other GI related concerns. Thank you. <Misael Del Cid - Last Filed: 04/11/18 10:53> Objective - Vital Signs/Intake and Output Vital Signs (last 24 hours): Temp Pulse Resp BP Pulse Ox 98.1 F 45 L 18 119/74 99 04/11/18 07:50 04/11/18 07:50 04/11/18 07:50 04/11/18 07:50 04/11/18 07:50 Intake and Output: 04/11/18 04/11/18 06:59 18:59 Intake Total 2760 Output Total 1450 Balance 1310 - Medications Medications: Current Medications Acetaminophen (Tylenol 325mg Tab) 650 mg PO Q6 PRN PRN Reason: Fever >100.4 F Last Admin: 04/10/18 00:09 Dose: 650 mg Sodium Chloride (Sodium Chloride 0.9%) 1,000 mls @ 125 mls/hr IV .Q8H [facility] Last Admin: 04/11/18 05:34 Dose: 125 mls/hr Vancomycin/Sodium Chloride (Vancomycin 1 Gm/Ns 200 Ml) 1 gm in 200 mls @ 133 mls/hr IVPB Q12H [facility] PRN Reason: Protocol Stop: 04/15/18 00:02 Last Admin: 04/11/18 00:30 Dose: 133 mls/hr Piperacillin Sod/Tazobactam (Sod 3.375 gm/ Sodium Chloride) 100 mls @ 200 mls/ hr IVPB Q6H [facility] PRN Reason: Protocol Last Admin: 04/11/18 09:29 Dose: 200 mls/hr Gentamicin Sulfate 80 mg/ (Sodium Chloride) 102 mls @ 100 mls/hr IVPB Q8H [facility] PRN Reason: Protocol Last Admin: 04/11/18 03:15 Dose: 100 mls/hr Methadone HCl (Methadone) 10 mg PO Q24H [facility] PRN Reason: Taper Stop: 04/14/18 08:59 Last Admin: 04/11/18 09:24 Dose: 10 mg Pantoprazole Sodium (Protonix Inj) 40 mg IVP DAILY [facility] Last Admin: 04/11/18 09:25 Dose: 40 mg Trazodone HCl (Desyrel) 100 mg PO HS [facility] Last Admin: 04/10/18 21:15 Dose: 100 mg - Labs Labs: 04/11/18 06:44 04/11/18 06:44 PT 14.4 SECONDS (9.7-12.2) H 04/09/18 08:15 INR 1.3 04/09/18 08:15 APTT 30 SECONDS (21-34) 04/09/18 08:15 Attending/Attestation - Attestation I have personally seen and examined this patient.: Yes I have fully participated in the care of the patient.: Yes I have reviewed all pertinent clinical information, including history, physical exam and plan: Yes Notes (Text): 04/11/18 10:50 I have seen and examined patient with GI fellow. No acute events overnight, he is seen resting in bed comfortably. He denies abdominal pain, nausea, vomiting , fever/chills. Tolerating PO liquids without difficulty. Polysubstance abuse HCV Transaminitis Hepatic lesions Bacteremia - Advance diet as tolerated - Continue with antibiotic therapy as per medical team - LFTs trending down, continue to monitor - Liver CT reviewed with radiologist. Given non-conclusive nature of hepatic lesions, possibly related to hemangiomas in setting of non-cirrhosis with normal AFP, would recommend repeat dedicated hepatic imaging with hemangioma protocol within 3 months. Alternatively MRI may be performed. Patient has appointment with PMD on April 17, will need repeat LFTs at that time. - Currently not a candidate for HCV therapy given ongoing IV drug use - No further planned GI interventions, will sign off case. Please reconsult as necessary, thank you.
[2018-04-11 06:57] LABS: BASO % 0.5 % (0.0-2.0); EOS % 0.6 % (0.0-4.0); LYMPH # 0.8 K/uL (1.0-4.3); LYMPH % 14.6 % (20.0-40.0); MEAN CELL VOLUME 91.4 fL (80.0-94.0); MEAN CORPUSCULAR HEMOGLOBIN 31.8 pg (27.0-31.0); MEAN CORPUSCULAR HGB CONC 34.7 g/dL (33.0-37.0); MONO # 0.4 K/uL (0.0-0.8); MONO % 7.4 % (0.0-10.0); NEUT % 76.9 % (50.0-75.0); NRBC % 0.1 % (0.0-2.0); RBC 4.1 Mil/uL (4.40-5.90); RED CELL DISTRIBUTION WIDTH 13.6 % (11.5-14.5); WHITE BLOOD COUNT 5.2 K/uL (4.8-10.8)
[2018-04-11 07:35] LABS: ALB/GLOB RATIO 1.2 (1.0-2.1); ALBUMIN 2.9 g/dL (3.5-5.0); ALT/SGPT 95 U/L (21-72); AST/SGOT 62 U/L (17-59); BLOOD UREA NITROGEN 9 mg/dL (9-20); CALCIUM 8.2 mg/dl (8.6-10.4); GFR AFRICAN-AMERICAN > 60; GFR NON-AFRICAN AMERICAN > 60
--- NOTE | 2018-04-11 16:02 | CP.PCM.CON ---
History of Present Illness - History of Present Illness History of Present Illness: PGY-[address] Smallwood 32 year old M with known PMHx, history of IV drug abuse beginning age 26 presented to ED 04/10 with severe stomach pain localized to RUQ and periumbilical region. During admission, patient was found to have positive Hep C antibodies and multiple nodules on the liver on CT thought to be hemangioma. Patient was found to be septic with elevated white count, fevers, and initial blood cultures (04/09) positive for gram negative rods. Pt was started on broad spectrum antibiotics with gram negative coverage and cardiology was consulted for possible endocarditis. Patient admitted to many years history of IVDU, including heroin and cocaine, and recently relapsed in the last couple of weeks after two years clean. Most recent blood cultures noted to be negative. Patient denied any cardiac symptoms, complaining only of mild abdominal pain. TTE showed [id number] tricuspid regurgitation and mild pulmonic regurgitation, but no evidence of valvular vegetations. We will plan to hold off on GLORIA as long as patient remains afebrile and cultures remain negative x3 days. Denied fevers, chest pain, palpitations, nausea, vomiting, dizziness +Mild abdominal pain Review of Systems - Constitutional Constitutional: absent: Chills, Fatigue, Fever - Cardiovascular Cardiovascular: absent: Chest Pain, Dyspnea, Palpitations - Respiratory Respiratory: absent: Cough, Dyspnea, Dyspnea on Exertion - Musculoskeletal Musculoskeletal: absent: Back Pain, Muscle Cramps - Neurological Neurological: absent: Confusion, Dizziness Past Patient History - Infectious Disease Hx of Infectious Diseases: None - Past Social History Smoking Status: Heavy Smoker > 10 Cigarettes Daily - HEMATOLOGICAL/ONCOLOGICAL Hx Hepatitis C: Yes - PSYCHIATRIC Hx Substance Use: Yes (last use yesterday) - SURGICAL HISTORY Hx Surgeries: Yes Hx Orthopedic Surgery: Yes (jaw) - ANESTHESIA Hx Anesthesia: Yes Hx Anesthesia Reactions: No Meds Allergies/Adverse Reactions: Allergies Allergy/AdvReac Type Severity Reaction Status Date / Time No Known Allergies Allergy Verified 04/09/18 07:41 - Medications Medications: Current Medications Acetaminophen (Tylenol 325mg Tab) 650 mg PO Q6 PRN PRN Reason: Fever >100.4 F Last Admin: 04/10/18 00:09 Dose: 650 mg Sodium Chloride (Sodium Chloride 0.9%) 1,000 mls @ 125 mls/hr IV .Q8H [facility] Last Admin: 04/11/18 05:34 Dose: 125 mls/hr Vancomycin/Sodium Chloride (Vancomycin 1 Gm/Ns 200 Ml) 1 gm in 200 mls @ 133 mls/hr IVPB Q12H [facility] PRN Reason: Protocol Stop: 04/15/18 00:02 Last Admin: 04/11/18 11:55 Dose: 133 mls/hr Piperacillin Sod/Tazobactam (Sod 3.375 gm/ Sodium Chloride) 100 mls @ 200 mls/ hr IVPB Q6H [facility] PRN Reason: Protocol Last Admin: 04/11/18 09:29 Dose: 200 mls/hr Gentamicin Sulfate 80 mg/ (Sodium Chloride) 102 mls @ 100 mls/hr IVPB Q8H [facility] PRN Reason: Protocol Last Admin: 04/11/18 11:40 Dose: 100 mls/hr Methadone HCl (Methadone) 10 mg PO Q24H [facility] PRN Reason: Taper Stop: 04/14/18 08:59 Last Admin: 04/11/18 09:24 Dose: 10 mg Pantoprazole Sodium (Protonix Inj) 40 mg IVP DAILY [facility] Last Admin: 04/11/18 09:25 Dose: 40 mg Trazodone HCl (Desyrel) 100 mg PO HS [facility] Last Admin: 04/10/18 21:15 Dose: 100 mg Physical Exam - Constitutional Appears: Well, No Acute Distress - Head Exam Head Exam: ATRAUMATIC, NORMAL INSPECTION, NORMOCEPHALIC - Eye Exam Eye Exam: EOMI, Normal appearance, PERRL - ENT Exam ENT Exam: Mucous Membranes Moist, Normal Exam - Respiratory Exam Respiratory Exam: Clear to Auscultation Bilateral, NORMAL BREATHING PATTERN. absent: Rales, Rhonchi, Wheezes - Cardiovascular Exam Cardiovascular Exam: REGULAR RHYTHM, +S1, +S2. absent: Gallop, JVD - Extremities Exam Extremities exam: Negative for: pedal edema - Neurological Exam Neurological exam: Alert, CN II-XII Intact, Oriented x3 Results - Vital Signs Recent Vital Signs: Last Vital Signs Temp 98.1 F 04/11/18 07:50 Pulse 45 L 04/11/18 07:50 Resp 18 04/11/18 07:50 BP 119/74 04/11/18 07:50 Pulse Ox 99 04/11/18 07:50 - Labs Result Diagrams: 04/11/18 06:44 04/11/18 06:44 Labs: Laboratory Results - last 24 hr 04/11/18 04/11/18 04/11/18 06:44 06:44 06:44 WBC 5.2 RBC 4.10 L Hgb 13.0 Hct 37.5 MCV 91.4 MCH 31.8 H MCHC 34.7 RDW 13.6 Plt Count 128 L MPV 10.0 Neut % (Auto) 76.9 H Lymph % (Auto) 14.[address] [facility] % (Auto) 7.4 Eos % (Auto) 0.6 Baso % (Auto) 0.5 Neut # (Auto) 4.0 Lymph # (Auto) 0.[address] [facility] [facility] # (Auto) 0.4 Eos # (Auto) 0.0 Baso # (Auto) 0.0 Sodium 142 Potassium 3.8 Chloride 109 H Carbon Dioxide 25 Anion Gap 11 BUN 9 Creatinine 0.8 Est GFR ( Amer) > 60 Est GFR (Non-Af Amer) > 60 Random Glucose 137 H Calcium 8.2 L Phosphorus 1.3 L Magnesium 2.1 Total Bilirubin 0.7 AST 62 H ALT 95 H Alkaline Phosphatase 89 Total Protein 5.3 L Albumin 2.9 L Globulin 2.4 Albumin/Globulin Ratio 1.2 Procalcitonin 8.31 H Assessment & Plan (1) Bacteremia Assessment and Plan: Consult to rule out endocarditis based on sepsis and history IVDU No overt evidence of endocarditis on TTE (04/09) - mild-to moderate tricuspid regurgitation mild pulmonic regurgitation, no evidence of valvular vegetations or calcifications Continue Abx per ID No GLORIA is needed if patient remains afebrile and cultures remain negative x3 days Status: Acute
[2018-04-11 16:11] VITALS: RESP 20
--- NOTE | 2018-04-11 21:06 | CP.PCM.PN ---
Subjective - Date & Time of Evaluation Date of Evaluation: 04/11/18 Time of Evaluation: 03:15 - Subjective Subjective: dictated Objective - Vital Signs/Intake and Output Vital Signs (last 24 hours): Temp Pulse Resp BP Pulse Ox 97.9 F 39 L 20 137/85 100 04/11/18 15:09 04/11/18 16:00 04/11/18 15:09 04/11/18 15:09 04/11/18 16:00 - Medications Medications: Current Medications Acetaminophen (Tylenol 325mg Tab) 650 mg PO Q6 PRN PRN Reason: Fever >100.4 F Last Admin: 04/10/18 00:09 Dose: 650 mg Sodium Chloride (Sodium Chloride 0.9%) 1,000 mls @ 125 mls/hr IV .Q8H [facility] Last Admin: 04/11/18 05:34 Dose: 125 mls/hr Vancomycin/Sodium Chloride (Vancomycin 1 Gm/Ns 200 Ml) 1 gm in 200 mls @ 133 mls/hr IVPB Q12H [facility] PRN Reason: Protocol Stop: 04/15/18 00:02 Last Admin: 04/11/18 11:55 Dose: 133 mls/hr Piperacillin Sod/Tazobactam (Sod 3.375 gm/ Sodium Chloride) 100 mls @ 200 mls/ hr IVPB Q6H [facility] PRN Reason: Protocol Last Admin: 04/11/18 16:09 Dose: 200 mls/hr Gentamicin Sulfate 80 mg/ (Sodium Chloride) 102 mls @ 100 mls/hr IVPB Q8H [facility] PRN Reason: Protocol Last Admin: 04/11/18 19:12 Dose: 100 mls/hr Methadone HCl (Methadone) 10 mg PO Q24H [facility] PRN Reason: Taper Stop: 04/14/18 08:59 Last Admin: 04/11/18 09:24 Dose: 10 mg Pantoprazole Sodium (Protonix Inj) 40 mg IVP DAILY [facility] Last Admin: 04/11/18 09:25 Dose: 40 mg Trazodone HCl (Desyrel) 100 mg PO HS [facility] Last Admin: 04/10/18 21:15 Dose: 100 mg - Labs Labs: 04/11/18 06:44 04/11/18 06:44 PT 14.4 SECONDS (9.7-12.2) H 04/09/18 08:15 INR 1.3 07/17/18 08:15 APTT 30 SECONDS (21-34) 04/09/18 08:15
[2018-04-12] MEDS: Vancomycin 1 gm/NS 200 ml 1 GM/200 ML BAG IVPB SCH (00:26)
[2018-04-12 01:45] VITALS: BP 137/84; TEMP 98.6; O2SAT 98
--- NOTE | 2018-04-12 02:42 | PN ---
DATE: 04/11/2018 SUBJECTIVE: The patient was seen today. He denied any complaints. He is IV drug abuser. Denies any skin infection. He does have tattoo green. PHYSICAL EXAMINATION: VITAL SIGNS: T-max is 97.9, his heart rate was 43, blood pressure 137/85, respirations are 20. 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 He was comfortable. HEENT: Head is atraumatic and normocephalic. NECK: Supple. LUNGS: Clear. No crackles or rales present. HEART: S1 and S2 is regular. ABDOMEN: Soft and nontender. No guarding. No rigidity present. EXTREMITIES: No edema, clubbing or cyanosis. He does have tattoo green on his forearm. Labs are noted. White count is 5.2, hemoglobin 13, hematocrit 37.5, platelet count is 128. Sodium is 142, potassium is 3.8, chloride 109, anion gap is 25, BUN is 11, creatinine is 0.8, AST is 62, ALT is 95. Procalcitonin level has decreased to 8.31 now, it was 12.52. Blood cultures are still ____. ID and sensitivity is still pending. It shows gram negative rods and they have not finalized and I am not sure what it resulted. All gram negatives, and I and D and sensitivity is pending. Repeat cultures from 04/10/2018 negative. So at this time, I will continue the same treatment. We will find out and junior systems analyst has been consulted to rule out endocarditis and possible GLORIA. At this time, we will continue the medications. Check for ID and sensitivity. The patient is also being seen by psychiatrist and was seen by for abdominal pain as he presented with severe epigastric pain. We will follow. Ishan Mo MD
[2018-04-12] MEDS: Piperacillin/Tazobact 3.375 GM in Sodium Chloride 100 ML IVPB SCH (04:01)
[2018-04-12] MEDS: Sodium Chloride 0.9% 1,000 ML IV SCH ×2 (06:29)
--- NOTE | 2018-04-12 06:29 | CP.PCM.PN ---
Subjective - Date & Time of Evaluation Date of Evaluation: 04/12/18 Time of Evaluation: 07:10 Objective - Vital Signs/Intake and Output Vital Signs (last 24 hours): Temp Pulse Resp BP Pulse Ox 98.6 F 42 L 20 137/84 98 04/11/18 23:20 04/11/18 23:20 04/11/18 23:20 04/11/18 23:20 04/11/18 23:20 Intake and Output: 04/11/18 04/12/18 18:59 06:59 Intake Total 1600 Balance 1600 - Medications Medications: Current Medications Acetaminophen (Tylenol 325mg Tab) 650 mg PO Q6 PRN PRN Reason: Fever >100.4 F Last Admin: 04/10/18 00:09 Dose: 650 mg Sodium Chloride (Sodium Chloride 0.9%) 1,000 mls @ 125 mls/hr IV .Q8H [facility] Last Admin: 04/11/18 05:34 Dose: 125 mls/hr Vancomycin/Sodium Chloride (Vancomycin 1 Gm/Ns 200 Ml) 1 gm in 200 mls @ 133 mls/hr IVPB Q12H [facility] PRN Reason: Protocol Stop: 04/15/18 00:02 Last Admin: 04/12/18 00:26 Dose: 133 mls/hr Piperacillin Sod/Tazobactam (Sod 3.375 gm/ Sodium Chloride) 100 mls @ 200 mls/ hr IVPB Q6H [facility] PRN Reason: Protocol Last Admin: 04/12/18 04:01 Dose: 200 mls/hr Gentamicin Sulfate 80 mg/ (Sodium Chloride) 102 mls @ 100 mls/hr IVPB Q8H [facility] PRN Reason: Protocol Last Admin: 04/12/18 02:38 Dose: 100 mls/hr Methadone HCl (Methadone) 10 mg PO Q24H [facility] PRN Reason: Taper Stop: 04/14/18 08:59 Last Admin: 04/11/18 09:24 Dose: 10 mg Pantoprazole Sodium (Protonix Inj) 40 mg IVP DAILY [facility] Last Admin: 04/11/18 09:25 Dose: 40 mg Trazodone HCl (Desyrel) 100 mg PO HS [facility] Last Admin: 04/11/18 21:23 Dose: 100 mg - Labs Labs: 04/11/18 06:44 04/11/18 06:44 PT 14.4 SECONDS (9.7-12.2) H 04/09/18 08:15 INR 1.3 04/09/18 08:15 APTT 30 SECONDS (21-34) 04/09/18 08:15
[2018-04-12 06:32] LABS: BASO # 0.1 K/uL (0.0-0.2); EOS % 0.8 % (0.0-4.0); HEMOGLOBIN 13.4 g/dL (12.0-18.0); LYMPH # 1.3 K/uL (1.0-4.3); LYMPH % 22.5 % (20.0-40.0); MEAN CELL VOLUME 90.3 fL (80.0-94.0); MEAN CORPUSCULAR HEMOGLOBIN 31.4 pg (27.0-31.0); MEAN CORPUSCULAR HGB CONC 34.7 g/dL (33.0-37.0); MEAN PLATELET VOLUME 10.2 fL (7.2-11.7); MONO # 0.4 K/uL (0.0-0.8); MONO % 7.4 % (0.0-10.0); NEUT % 68.3 % (50.0-75.0); RBC 4.27 Mil/uL (4.40-5.90); RED CELL DISTRIBUTION WIDTH 13.5 % (11.5-14.5); WHITE BLOOD COUNT 5.8 K/uL (4.8-10.8)
[2018-04-12 06:50] LABS: GFR AFRICAN-AMERICAN > 60; GFR NON-AFRICAN AMERICAN > 60
[2018-04-12 06:52] LABS: ALB/GLOB RATIO 1.5 (1.0-2.1); ALBUMIN 3.2 g/dL (3.5-5.0); ALT/SGPT 132 U/L (21-72); AST/SGOT 98 U/L (17-59); BLOOD UREA NITROGEN 12 mg/dL (9-20); CALCIUM 8.5 mg/dl (8.6-10.4)
[2018-04-12 08:03] VITALS: PULSE 60
--- NOTE | 2018-04-12 17:01 | CP.PCM.DIS ---
<TutuSamaraFrancisco M - Last Filed: 04/12/18 17:48> Provider - Provider Date of Admission: 04/09/18 10:55 Attending physician: Shayy Vieyra DO Primary care physician: Dr. Matty Gutierrez Consults: Dr. Estes, Dr. Mo, Dr. Yuen, Dr. Guajardo, Dr. Phelan Time Spent in preparation of Discharge (in minutes): 40 Diagnosis - Discharge Diagnosis (1) Bacteremia Status: Acute (2) Abdominal pain Status: Acute (3) Drug abuse Status: Acute Hospital Course - Lab Results Lab Results: Micro Results 04/10/18 14:28 Blood Blood Culture - Preliminary NO GROWTH AFTER 48 HOURS 04/10/18 10:43 Blood Blood Culture - Preliminary NO GROWTH AFTER 48 HOURS 04/09/18 22:41 Blood Blood Culture - Preliminary Escherichia Coli Gram Positive Cocci 04/09/18 22:41 Blood Gram Stain - Final 04/09/18 22:41 Blood Blood Culture - Final Escherichia Coli 04/09/18 22:41 Blood Gram Stain - Final 04/09/18 09:11 Urine Urine Culture - Final No Growth (<1,000 CFU/ML) Most Recent Lab Values WBC 5.8 K/uL (4.8-10.8) 04/12/18 06:21 RBC 4.27 Mil/uL (4.40-5.90) L 04/12/18 06:21 Hgb 13.4 g/dL (12.0-18.0) 04/12/18 06:21 Hct 38.5 % (35.0-51.0) 04/12/18 06:21 MCV 90.3 fL (80.0-94.0) 04/12/18 06:21 MCH 31.4 pg (27.0-31.0) H 04/12/18 06:21 MCHC 34.7 g/dL (33.0-37.0) 04/12/18 06:21 RDW 13.5 % (11.5-14.5) 04/12/18 06:21 Plt Count 163 K/uL (130-400) 04/12/18 06:21 MPV 10.2 fL (7.2-11.7) 04/12/18 06:21 Neut % (Auto) 68.3 % (50.0-75.0) 04/12/18 06:21 Lymph % (Auto) 22.5 % (20.0-40.0) 04/12/18 06:21 Arthur % (Auto) 7.4 % (0.0-10.0) 04/12/18 06:21 Eos % (Auto) 0.8 % (0.0-4.0) 04/12/18 06:21 Baso % (Auto) 1.0 % (0.0-2.0) 04/12/18 06:21 Neut # (Auto) 4.0 K/uL (1.8-7.0) 04/12/18 06:21 Lymph # (Auto) 1.3 K/uL (1.0-4.3) 04/12/18 06:21 Arthur # (Auto) 0.4 K/uL (0.0-0.8) 04/12/18 06:21 Eos # (Auto) 0.0 K/uL (0.0-0.7) 04/12/18 06:21 Baso # (Auto) 0.1 K/uL (0.0-0.2) 04/12/18 06:21 Neutrophils % (Manual) 85 % (50-75) H 04/10/18 10:43 Band Neutrophils % 9 % (0-2) H 04/10/18 10:43 Lymphocytes % (Manual) 3 % (20-40) L 04/10/18 10:43 Monocytes % (Manual) 3 % (0-10) 04/10/18 10:43 Platelet Estimate Normal (NORMAL) 04/10/18 10:43 RBC Morphology Normal 04/10/18 10:43 PT 14.4 SECONDS (9.7-12.2) H 04/09/18 08:15 INR 1.3 04/09/18 08:15 APTT 30 SECONDS (21-34) 04/09/18 08:15 pO2 65 mm/Hg (30-55) H 04/09/18 13:09 VBG pH 7.40 (7.32-7.43) 04/09/18 13:09 VBG pCO2 41 mmHg (40-60) 04/09/18 13:09 VBG HCO3 25.2 mmol/L 04/09/18 13:09 VBG Total CO2 26.7 mmol/L (22-28) 04/09/18 13:09 VBG O2 Sat (Calc) 95.7 % (40-65) H 04/09/18 13:09 VBG Base Excess 0.5 mmol/L (0.0-2.0) 04/09/18 13:09 VBG Potassium 3.2 mmol/L (3.6-5.2) L 04/09/18 13:09 Sodium 133.0 mmol/l (132-148) 04/09/18 13:09 Chloride 103.0 mmol/L (98-107) 04/09/18 13:09 Glucose 133 mg/dl (75-110) H 04/09/18 13:09 Lactate 1.2 mmol/L (0.7-2.1) 04/09/18 13:09 FiO2 21.0 % 04/09/18 13:09 Sodium 140 mmol/L (132-148) 04/12/18 06:21 Potassium 3.8 mmol/L (3.6-5.2) 04/12/18 06:21 Chloride 106 mmol/L (98-107) 04/12/18 06:21 Carbon Dioxide 24 mmol/L (22-30) 04/12/18 06:21 Anion Gap 15 (10-20) 04/12/18 06:21 BUN 12 mg/dL (9-20) 04/12/18 06:21 Creatinine 0.8 mg/dL (0.8-1.5) 04/12/18 06:21 Est GFR ( Amer) > 60 04/12/18 06:21 Est GFR (Non-Af Amer) > 60 04/12/18 06:21 Random Glucose 125 mg/dL (75-110) H 04/12/18 06:21 Calcium 8.5 mg/dl (8.6-10.4) L 04/12/18 06:21 Phosphorus 1.6 mg/dL (2.5-4.5) L 04/12/18 06:21 Magnesium 1.7 mg/dL (1.6-2.3) 04/12/18 06:21 Total Bilirubin 0.5 mg/dL (0.2-1.3) 04/12/18 06:21 AST 98 U/L (17-59) H D 04/12/18 06:21 ALT 132 U/L (21-72) H D 04/12/18 06:21 Alkaline Phosphatase 107 U/L (38-126) 04/12/18 06:21 Total Creatine Kinase 197 U/L (55-170) H 04/09/18 08:15 Troponin I < 0.0120 ng/mL (0.00-0.120) 04/09/18 08:15 Total Protein 5.4 g/dL (6.3-8.3) L 04/12/18 06:21 Albumin 3.2 g/dL (3.5-5.0) L 04/12/18 06:21 Globulin 2.1 gm/dL (2.2-3.9) L 04/12/18 06:21 Albumin/Globulin Ratio 1.5 (1.0-2.1) 04/12/18 06:21 Lipase 44 U/L (23-300) 04/09/18 08:15 Alpha Fetoprotein 2.1 ng/mL (0.0-7.5) 04/10/18 13:55 Procalcitonin 8.31 NG/ML (0.19-0.49) H 04/11/18 06:44 Venous Blood Potassium 3.2 mmol/L (3.6-5.2) L 04/09/18 13:09 Urine Color Yellow (YELLOW) 04/09/18 09:11 Urine Clarity Clear (Clear) 04/09/18 09:11 Urine pH 5.0 (5.0-8.0) 04/09/18 09:11 Ur Specific Holloway 1.026 (1.003-1.030) 04/09/18 09:11 Urine Protein Negative mg/dL (NEGATIVE) 04/09/18 09:11 Urine Glucose (UA) Normal mg/dL (Normal) 04/09/18 09:11 Urine Ketones Negative mg/dL (NEGATIVE) 04/09/18 09:11 Urine Blood Negative (NEGATIVE) 04/09/18 09:11 Urine Nitrate Negative (NEGATIVE) 04/09/18 09:11 Urine Bilirubin Negative (NEGATIVE) 04/09/18 09:11 Urine Urobilinogen 2.0 mg/dL (0.2-1.0) 04/09/18 09:11 Ur Leukocyte Esterase Neg Kezia/uL (Negative) 04/09/18 09:11 Urine WBC (Auto) < 1 /hpf (0-5) 04/09/18 09:11 Urine RBC (Auto) < 1 /hpf (0-3) 04/09/18 09:11 Urine Opiates Screen Positive (NEGATIVE) H 04/09/18 09:11 Urine Methadone Screen Negative (NEGATIVE) 04/09/18 09:11 Ur Barbiturates Screen Negative (NEGATIVE) 04/09/18 09:11 Ur Phencyclidine Scrn Negative (NEGATIVE) 04/09/18 09:11 Ur Amphetamines Screen Negative (NEGATIVE) 04/09/18 09:11 U Benzodiazepines Scrn Negative (NEGATIVE) 04/09/18 09:11 U Oth Cocaine Metabols Positive (NEGATIVE) H 04/09/18 09:11 U Cannabinoids Screen Positive (NEGATIVE) H 04/09/18 09:11 Hepatitis A IgM Ab Negative (NEGATIVE) 04/09/18 13:06 Hep Bs Antigen Negative (NEGATIVE) 04/09/18 13:06 Hep B Core IgM Ab Negative (NEGATIVE) 04/09/18 13:06 Hepatitis C Antibody Reactive (NEGATIVE) 04/09/18 13:06 HIV 1&2 Antibody Screen Negative (NEGATIVE) 04/09/18 13:06 Mycoplasma pneumon IgM Negative (NEGATIVE) 04/09/18 13:23 - Hospital Course Hospital Course: 32 year old Male w/ polysubstance abuse presents to ED for approximately 3 hours of 6/10, non radiating abdominal pain localized to RUQ to umbilical region. Patient states pain was constant, cramping in nature and was sudden in onset. 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 Patient initially had chills & nausea, denies fevers. Patient denies chest pain, difficulty breathing, vomiting, diarrhea, constipation, difficulty voiding, change in vision, change in hearing during this time. At time of exam, patient states pain in stomach as resolved. During the course, patient had blood cultures, urine cultures obtained due to patient was SIRs positive. Initial cultures grew gram negative rods and was on empiric coverage of gentamicin, vancomyocin, and zosyn. Patient continued to spike fevers and a second set of blood cultures were obtained and showed no growth 48 hours later. Patient additionally had a CT liver performed and evaluated by GI revealing likely hemangiomas and should follow up in 3 months. Patient also had gallbladder thickening per Ultrasound & CT. At this time surgery examined and cholecystecomy was not needed. Patient had a Echocardiogram that did not reveal vegetations on heart valves. Per cardiology, GLORIA was not recommended if patient no longer is spiking fevers and cultures are negative X3 days. Patient informed of all results and decided he wants to sign out AMA. Patient was informed of the risks including but not limited to life threatening infection, damage to his heart, and or . Patient understood the risks and was informed he may return to the hospital if he needs to. Patient understood and signed AMA form. Nurse witnessed. Discharge Exam - Head Exam Head Exam: ATRAUMATIC, NORMAL INSPECTION, NORMOCEPHALIC - Eye Exam Eye Exam: EOMI, Normal appearance Pupil Exam: NORMAL ACCOMODATION - ENT Exam ENT Exam: Mucous Membranes Moist - Neck Exam Neck exam: Full Rom - Respiratory Exam Respiratory Exam: NORMAL BREATHING PATTERN, UNREMARKABLE. absent: Rales, Rhonchi, Wheezes - Cardiovascular Exam Cardiovascular Exam: +S1, +S2. absent: Irregular Rhythm, Systolic Murmur - GI/Abdominal Exam GI & Abdominal Exam: Normal Bowel Sounds, Soft. absent: Distended, Firm, Mass - Extremities Exam Additional comments: no calf tenderness, edema. Pulsees intact in all extremities. Pt had track gifty along R forearm. - Psychiatric Exam Psychiatric exam: Flat Affect, Normal Affect, Normal Mood - Skin Skin Exam: Dry, Intact, Normal Color, Warm Discharge Plan - Follow Up Plan Condition: GUARDED Disposition: AGAINST MEDICAL ADVICE <Shayy Vieyra V - Last Filed: 04/15/18 00:47> Provider - Provider Date of Admission: 04/09/18 10:55 Attending physician: Shayy Vieyra DO Diagnosis - Discharge Diagnosis (1) Left against medical advice Status: Acute (2) SIRS (systemic inflammatory response syndrome) Status: Acute (3) Hepatitis C antibody positive in blood Status: Acute (4) Liver masses Status: Acute (5) Bacteremia Status: Acute Hospital Course - Lab Results Lab Results: Micro Results 04/10/18 14:28 Blood Blood Culture - Preliminary NO GROWTH AFTER 4 DAYS 04/10/18 10:43 Blood Blood Culture - Preliminary NO GROWTH AFTER 4 DAYS 04/09/18 22:41 Blood Blood Culture - Final Escherichia Coli Melanieridmitry Bowlingae 04/09/18 22:41 Blood Gram Stain - Final 04/09/18 22:41 Blood Blood Culture - Final Escherichia Coli 04/09/18 22:41 Blood Gram Stain - Final 04/09/18 09:11 Urine Urine Culture - Final No Growth (<1,000 CFU/ML) Most Recent Lab Values WBC 5.8 K/uL (4.8-10.8) 04/12/18 06:21 RBC 4.27 Mil/uL (4.40-5.90) L 04/12/18 06:21 Hgb 13.4 g/dL (12.0-18.0) 04/12/18 06:21 Hct 38.5 % (35.0-51.0) 04/12/18 06:21 MCV 90.3 fL (80.0-94.0) 04/12/18 06:21 MCH 31.4 pg (27.0-31.0) H 04/12/18 06:21 MCHC 34.7 g/dL (33.0-37.0) 04/12/18 06:21 RDW 13.5 % (11.5-14.5) 04/12/18 06:21 Plt Count 163 K/uL (130-400) 04/12/18 06:21 MPV 10.2 fL (7.2-11.7) 04/12/18 06:21 Neut % (Auto) 68.3 % (50.0-75.0) 04/12/18 06:21 Lymph % (Auto) 22.5 % (20.0-40.0) 04/12/18 06:21 Arthur % (Auto) 7.4 % (0.0-10.0) 04/12/18 06:21 Eos % (Auto) 0.8 % (0.0-4.0) 04/12/18 06:21 Baso % (Auto) 1.0 % (0.0-2.0) 04/12/18 06:21 Neut # (Auto) 4.0 K/uL (1.8-7.0) 04/12/18 06:21 Lymph # (Auto) 1.3 K/uL (1.0-4.3) 04/12/18 06:21 Arthur # (Auto) 0.4 K/uL (0.0-0.8) 04/12/18 06:21 Eos # (Auto) 0.0 K/uL (0.0-0.7) 04/12/18 06:21 Baso # (Auto) 0.1 K/uL (0.0-0.2) 04/12/18 06:21 Neutrophils % (Manual) 85 % (50-75) H 04/10/18 10:43 Band Neutrophils % 9 % (0-2) H 04/10/18 10:43 Lymphocytes % (Manual) 3 % (20-40) L 04/10/18 10:43 Monocytes % (Manual) 3 % (0-10) 04/10/18 10:43 Platelet Estimate Normal (NORMAL) 04/10/18 10:43 RBC Morphology Normal 04/10/18 10:43 PT 14.4 SECONDS (9.7-12.2) H 04/09/18 08:15 INR 1.3 04/09/18 08:15 APTT 30 SECONDS (21-34) 04/09/18 08:15 pO2 65 mm/Hg (30-55) H 04/09/18 13:09 VBG pH 7.40 (7.32-7.43) 04/09/18 13:09 VBG pCO2 41 mmHg (40-60) 04/09/18 13:09 VBG HCO3 25.2 mmol/L 04/09/18 13:09 VBG Total CO2 26.7 mmol/L (22-28) 04/09/18 13:09 VBG O2 Sat (Calc) 95.7 % (40-65) H 04/09/18 13:09 VBG Base Excess 0.5 mmol/L (0.0-2.0) 04/09/18 13:09 VBG Potassium 3.2 mmol/L (3.6-5.2) L 04/09/18 13:09 Sodium 133.0 mmol/l (132-148) 04/09/18 13:09 Chloride 103.0 mmol/L (98-107) 04/09/18 13:09 Glucose 133 mg/dl (75-110) H 04/09/18 13:09 Lactate 1.2 mmol/L (0.7-2.1) 04/09/18 13:09 FiO2 21.0 % 04/09/18 13:09 Sodium 140 mmol/L (132-148) 04/12/18 06:21 Potassium 3.8 mmol/L (3.6-5.2) 04/12/18 06:21 Chloride 106 mmol/L (98-107) 04/12/18 06:21 Carbon Dioxide 24 mmol/L (22-30) 04/12/18 06:21 Anion Gap 15 (10-20) 04/12/18 06:21 BUN 12 mg/dL (9-20) 04/12/18 06:21 Creatinine 0.8 mg/dL (0.8-1.5) 04/12/18 06:21 Est GFR ( Amer) > 60 04/12/18 06:21 Est GFR (Non-Af Amer) > 60 04/12/18 06:21 Random Glucose 125 mg/dL (75-110) H 04/12/18 06:21 Calcium 8.5 mg/dl (8.6-10.4) L 04/12/18 06:21 Phosphorus 1.6 mg/dL (2.5-4.5) L 04/12/18 06:21 Magnesium 1.7 mg/dL (1.6-2.3) 04/12/18 06:21 Total Bilirubin 0.5 mg/dL (0.2-1.3) 04/12/18 06:21 AST 98 U/L (17-59) H D 04/12/18 06:21 ALT 132 U/L (21-72) H D 04/12/18 06:21 Alkaline Phosphatase 107 U/L (38-126) 04/12/18 06:21 Total Creatine Kinase 197 U/L (55-170) H 04/09/18 08:15 Troponin I < 0.0120 ng/mL (0.00-0.120) 04/09/18 08:15 Total Protein 5.4 g/dL (6.3-8.3) L 04/12/18 06:21 Albumin 3.2 g/dL (3.5-5.0) L 04/12/18 06:21 Globulin 2.1 gm/dL (2.2-3.9) L 04/12/18 06:21 Albumin/Globulin Ratio 1.5 (1.0-2.1) 04/12/18 06:21 Lipase 44 U/L (23-300) 04/09/18 08:15 Alpha Fetoprotein 2.1 ng/mL (0.0-7.5) 04/10/18 13:55 Procalcitonin 8.31 NG/ML (0.19-0.49) H 04/11/18 06:44 Venous Blood Potassium 3.2 mmol/L (3.6-5.2) L 04/09/18 13:09 Urine Color Yellow (YELLOW) 04/09/18 09:11 Urine Clarity Clear (Clear) 04/09/18 09:11 Urine pH 5.0 (5.0-8.0) 04/09/18 09:11 Ur Specific Holloway 1.026 (1.003-1.030) 04/09/18 09:11 Urine Protein Negative mg/dL (NEGATIVE) 04/09/18 09:11 Urine Glucose (UA) Normal mg/dL (Normal) 04/09/18 09:11 Urine Ketones Negative mg/dL (NEGATIVE) 04/09/18 09:11 Urine Blood Negative (NEGATIVE) 04/09/18 09:11 Urine Nitrate Negative (NEGATIVE) 04/09/18 09:11 Urine Bilirubin Negative (NEGATIVE) 04/09/18 09:11 Urine Urobilinogen 2.0 mg/dL (0.2-1.0) 04/09/18 09:11 Ur Leukocyte Esterase Neg Kezia/uL (Negative) 04/09/18 09:11 Urine WBC (Auto) < 1 /hpf (0-5) 04/09/18 09:11 Urine RBC (Auto) < 1 /hpf (0-3) 04/09/18 09:11 Urine Opiates Screen Positive (NEGATIVE) H 04/09/18 09:11 Urine Methadone Screen Negative (NEGATIVE) 04/09/18 09:11 Ur Barbiturates Screen Negative (NEGATIVE) 04/09/18 09:11 Ur Phencyclidine Scrn Negative (NEGATIVE) 04/09/18 09:11 Ur Amphetamines Screen Negative (NEGATIVE) 04/09/18 09:11 U Benzodiazepines Scrn Negative (NEGATIVE) 04/09/18 09:11 U Oth Cocaine Metabols Positive (NEGATIVE) H 04/09/18 09:11 U Cannabinoids Screen Positive (NEGATIVE) H 04/09/18 09:11 Hepatitis A IgM Ab Negative (NEGATIVE) 04/09/18 13:06 Hep Bs Antigen Negative (NEGATIVE) 04/09/18 13:06 Hep B Core IgM Ab Negative (NEGATIVE) 04/09/18 13:06 Hepatitis C Antibody Reactive (NEGATIVE) 04/09/18 13:06 HIV 1&2 Antibody Screen Negative (NEGATIVE) 04/09/18 13:06 Mycoplasma pneumon IgM Negative (NEGATIVE) 04/09/18 13:23 Attending/Attestation - Attestation Notes (Text): This is late computer entry for 04/12/18. Patient left prior to my rounds. Patient aware will need to continue IV abx for treatment of his bacteremia, Resident advised risks of leaving prematurely from the hospital including sepsis , shock, and . In spite recommendation, patient chose to leave against medical advice. 1) Left Against Medical Advice 2) SIRS Bacteremia Assessment/Plan * monitor on telemetry * ID Dr. Mo on board-->help appreciated * Criteria: Tmax: 102.8 F, lactate 2.4 -. 1.2 * IV abx: zosyn 3.375 g IV Q6 (active since 04/09/18) vancomycin 1g IV Q 12 (active since 04/09 @ 12 noon, vanc troph due 11:30 PM 04/10) Start Gentamicin by ID given bacteremia * Chest xray - no active disease, r * Chest Pa/ Lateral 04/10: no active disease * Blood cultures (04/09/18): gram negative rods X2 * Blood cultures (04/11/18): no growth * Procalcition: 12.52-->8.31 * Tylenol 650 mg PO Q6H PRN for fever * Pending Legionella, strep pneumonia, mycoplasma IgM 3) History of IV Drug use Hepatitis C AB + Assessment/Plan * 04/10: discussed with patient and girlfriend in regards to Hep C Ab+ likely secondary to IV drug use; education provided to transfer of body fluids/blood fluids; advised to not share needles and advised to follow-up outpatient doctor for possible treatment if confirmed with additional blood testing * HIV negative * Echocardiogram (04/10/18): left ventricle is mildly dilated. left ventricle systolic function is normal. Ejection fraction is 70%. Mitral regurgitation is mild. Mild to moderate tricuspid regurgitation and mild pulmonic valvular regurgitation * Cardiology consulted for possible GLORIA 4) Mild R arm swelling/ lymphagitis Assessment/Plan * track green over R upper extremity noted on admission * non extremity US (right) r/o abscess (04/10): no sonographic evidence of abscess 5) Abdominal pain Assessment/Plan * General surgery (Dr. Phelan) harp action assembler-->help appreciated * no surgical intervention * GI (Dr. Del Cid) harp action assembler-->help appreciated * Liver CT reviewed by me showing potential hemangiomas as etiology of liver lesions, though not definitive. Will need to review with radiology. * Clear liquid diet as tolerated * Patient not a candidate for HCV therapy due to ongoing substance abuse * Lipase - normal * CT abd/pel: non specific hepatic hypodense not as cysts largest posterior R hepatic lobe ~3.5 cm, gallbladder edema * Abdominal US (04/09/18): confirmation multiple hepatic masses. Gallbladder wall thickening without stones or other pathologies. * Diet advanced to liquid after discussions with both GI and general surgery 6) Polysubstance abuse Assessment/Plan * Psychiatry (Dr. Guajardo) on case help appreciated * psych management of withdrawal * + cocaine, + marijuana, + heroin * DO not give beta- blockers * Seizure precautions 7) Propylactic measure * protonix 40mg IV Q daily * SCDs b/l LE * Aspiration precautions * Seizure precautions * IV fluids: NS 125cc/hr * Diet advanced to liquid
== END 2018-04-12 08:00 | disposition left against medical advice (07) ==
LOC: C.ER 07:37 → C.9E 10:55 → C.6T 13:39
PROVIDERS: ADMIT Hospitalist; ATTEND Hospitalist
DX: R78.81 Bacteremia (principal); R10.9 Unspecified abdominal pain; F11.23 Opioid dependence with withdrawal; F12.90 Cannabis use, unspecified, uncomplicated; B19.20 Unspecified viral hepatitis C without hepatic coma; D18.00 Hemangioma unspecified site; F14.90 Cocaine use, unspecified, uncomplicated; F17.210 Nicotine dependence, cigarettes, uncomplicated
CPT/HCPCS: 36415; 71045; 71046; 74170; 74177; 76700; 76881; 80053; 80074; 80324; 80345; 80346; 80349; 80353; 80358; 80361; 81001; 82105; 82550; 82803; 83690; 83735; 83992; 84100; 84145; 84484; 85025; 85610; 85730; 86703; 86738; 87040; 87086; 87181; 87205; 87206; 93005; 93306; 96361; 96365; 96366; 96367; 96375; 96376; 99284; C9113; G0378; J1580; J1885; J2405; J2543; J3370; J7030; J7050; Q9967

== ENCOUNTER 2018-04-16 04:29 | Emergency (ER) | payer OTHER ==
[2018-04-16 04:47] VITALS: BP 138/80; PULSE 75; TEMP 98.5; O2SAT 98
--- NOTE | 2018-04-16 05:10 | C.PDOC ---
History Of Present Illness 32-year-old male presents to the ED with complaints of a pain to his left forearm for 3 days. States he was recently hospitalized for a blood infection, received IV antibiotics, and had the IV removed 3 days ago when he signed out AMA. Patient is now concerned about abscess formation or recurrence of infection. States the area feels like "a hardened vein." He denies any fever or chills. Denies recent drug use. Time Seen by Provider: 04/16/18 04:48 Chief Complaint (Nursing): Upper Extremity Problem/Injury History Per: Patient History/Exam Limitations: no limitations Onset/Duration Of Symptoms: Days Current Symptoms Are (Timing): Still Present Past Medical History Reviewed: Historical Data, Nursing Documentation, Vital Signs Vital Signs: Last Vital Signs Temp 98.5 F 04/16/18 04:42 Pulse 75 04/16/18 04:42 Resp 14 04/16/18 05:18 BP 138/80 04/16/18 04:42 Pulse Ox 98 04/16/18 05:12 - Medical History PMH: Hepatitis (C) Other PMH: Substance abuse Other Surgeries: Jaw surgery Family History: States: No Known Family Hx - Social History Hx Alcohol Use: No Hx Substance Use: Yes (states last use 04/12) - Immunization History Hx Tetanus Toxoid Vaccination: No Hx Influenza Vaccination: No Hx Pneumococcal Vaccination: No Review Of Systems Except As Marked, All Systems Reviewed And Found Negative. Constitutional: Positive for: Sweats (at night). Negative for: Fever, Chills Musculoskeletal: Positive for: Arm Pain (swelling and pain to left forearm) Skin: Negative for: Rash, Bruising Neurological: Negative for: Weakness, Numbness, Incoordination Physical Exam - Physical Exam Appears: Well, Non-toxic, No Acute Distress Skin: Warm, Dry, No Rash, No Ecchymosis Head: Atraumatic, Normacephalic Eye(s): bilateral: Normal Inspection Oral Mucosa: Moist Neck: Normal ROM Chest: Symmetrical Respiratory: No Accessory Muscle Use Extremity: Normal ROM, No Tenderness, No Deformity, Other (Several tattoos to arm. No erythema, mass, or swelling; no cellulitis) Pulses: Left Radial: Normal, Right Radial: Normal Neurological/Psych: Oriented x3, Normal Speech ED Course And Treatment O2 Sat by Pulse Oximetry: 98 (room air) Pulse Ox Interpretation: Normal Medical Decision Making Medical Decision Making: Impression: phlebitis Plan: Informed patient of normal exam findings, reassured him that there is no abscess formation or cellulitis. Patient remains alert, afebrile, in no acute distress, and is stable for discharge home. Advised to follow up with the clinic for further evaluation. 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 - Scribe Statement The provider has reviewed the documentation as recorded by the Scribe (Raquel Mcgowan) All medical record entries made by the Scribe were at my direction and personally dictated by me. I have reviewed the chart and agree that the record accurately reflects my personal performance of the history, physical exam, medical decision making, and the department course for this patient. I have also personally directed, reviewed, and agree with the discharge instructions and disposition.
[2018-04-16 05:19] VITALS: RESP 14
== END 2018-04-16 05:05 | disposition home or self-care (01) ==
LOC: C.ER 04:29
DX: I80.8 Phlebitis and thrombophlebitis of other sites (principal)

== ENCOUNTER 2018-04-23 02:13 | Emergency (ER) | payer SELFPAY ==
[2018-04-23 02:24] VITALS: BP 115/71; PULSE 81; TEMP 98.5; O2SAT 96
--- NOTE | 2018-04-23 02:46 | C.PDOC ---
History Of Present Illness 32 year old male presented to ED c/o pain to vein in his left arm after having an IV placed two weeks ago. Patient is concerned and requesting evaluation. He offers no other medical complaints. Time Seen by Provider: 04/23/18 02:26 Chief Complaint (Nursing): Upper Extremity Problem/Injury History Per: Patient History/Exam Limitations: no limitations Onset/Duration Of Symptoms: Days Current Symptoms Are (Timing): Still Present Quality: "Pain" Past Medical History Reviewed: Historical Data, Nursing Documentation, Vital Signs Vital Signs: Last Vital Signs Temp 98.5 F 04/23/18 02:20 Pulse 81 04/23/18 02:20 Resp 18 04/23/18 03:09 BP 115/71 04/23/18 02:20 Pulse Ox 96 04/23/18 03:35 - Medical History PMH: Hepatitis (C) Surgical History: No Surg Hx Family History: States: No Known Family Hx - Social History Hx Alcohol Use: No Hx Substance Use: Yes (states last use 04/12) - Immunization History Hx Tetanus Toxoid Vaccination: No Hx Influenza Vaccination: No Hx Pneumococcal Vaccination: No Review Of Systems Constitutional: Negative for: Fever, Chills Cardiovascular: Negative for: Chest Pain, Palpitations Respiratory: Negative for: Shortness of Breath Gastrointestinal: Negative for: Nausea, Vomiting Musculoskeletal: Positive for: Other (pain to a vein in left arm) Physical Exam - Physical Exam Appears: Non-toxic, No Acute Distress Skin: Normal Color, Warm, Dry Head: Atraumatic, Normacephalic Eye(s): bilateral: Normal Inspection Extremity: Normal ROM (x4), No Tenderness, Capillary Refill (<2 seconds), No Swelling, Other (Slight indurated area of superficial vein posterior lateral to left antecubital area. No warmth, erythema. no swelling or tenderness at thw antecubital groove) Pulses: Left Radial: Normal, Right Radial: Normal Neurological/Psych: Oriented x3, Normal Speech, Normal Motor, Normal Sensation Gait: Steady ED Course And Treatment O2 Sat by Pulse Oximetry: 96 (RA) Pulse Ox Interpretation: Normal Progress Note: Patient is resting comfortably in ER, in no acute distress, vitals are stable. Patient is reassured and advised to follow up with physician in the next 1-2 days. 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 - Scribe Statement The provider has reviewed the documentation as recorded by the Scribe Jori Parmar All medical record entries made by the Rafael were at my direction and personally dictated by me. I have reviewed the chart and agree that the record accurately reflects my personal performance of the history, physical exam, medical decision making, and the department course for this patient. I have also personally directed, reviewed, and agree with the discharge instructions and disposition.
[2018-04-23 03:11] VITALS: RESP 18
== END 2018-04-23 03:10 | disposition home or self-care (01) ==
LOC: C.ER 02:13
DX: I80.8 Phlebitis and thrombophlebitis of other sites (principal)

== ENCOUNTER 2018-05-12 00:10 | Emergency (ER) | payer SELFPAY ==
[2018-05-12 00:19] VITALS: PULSE 61; TEMP 97.8
[2018-05-12 01:43] LABS: BASO % 0.8 % (0.0-2.0); EOS # 0.1 K/uL (0.0-0.7); EOS % 1.9 % (0.0-4.0); HEMOGLOBIN 13.6 g/dL (12.0-18.0); LYMPH # 2.8 K/uL (1.0-4.3); LYMPH % 45.6 % (20.0-40.0); MEAN CELL VOLUME 90.1 fL (80.0-94.0); MEAN CORPUSCULAR HEMOGLOBIN 32.2 pg (27.0-31.0); MEAN CORPUSCULAR HGB CONC 35.7 g/dL (33.0-37.0); MONO # 0.4 K/uL (0.0-0.8); MONO % 6.9 % (0.0-10.0); NEUT # 2.7 K/uL (1.8-7.0); NEUT % 44.8 % (50.0-75.0); NRBC % 0.1 % (0.0-2.0); RBC 4.23 Mil/uL (4.40-5.90); RED CELL DISTRIBUTION WIDTH 13.3 % (11.5-14.5); WHITE BLOOD COUNT 6.1 K/uL (4.8-10.8)
[2018-05-12 02:09] VITALS: BP 128/68; RESP 18; O2SAT 97
[2018-05-12 02:19] LABS: ALB/GLOB RATIO 1.6 (1.0-2.1); ALBUMIN 4.4 g/dL (3.5-5.0); ALT/SGPT 103 U/L (21-72); AST/SGOT 49 U/L (17-59); BLOOD UREA NITROGEN 19 mg/dL (9-20); CALCIUM 9.4 mg/dl (8.6-10.4); GFR AFRICAN-AMERICAN > 60; GFR NON-AFRICAN AMERICAN > 60
--- NOTE | 2018-05-12 02:30 | C.PDOC ---
History Of Present Illness 32 year old male patient with hx of substance abuse presents to the ER with c/o chest pain. Patient states he feels sore with certain movements. Patient is concerned and anxious due to the pain. Pain scale is a 2/10. Patient notes pain started at 6 am yesterday. Patient denies SOB, palpitations, diaphoresis, nausea and vomiting. Patient notes his last heroine and cocaine use was x1 month ago. Time Seen by Provider: 05/12/18 01:16 Chief Complaint (Nursing): Chest Pain History Per: Patient History/Exam Limitations: no limitations Onset/Duration Of Symptoms: Days (x2) Current Symptoms Are (Timing): Still Present Past Medical History Reviewed: Historical Data, Nursing Documentation, Vital Signs Vital Signs: Last Vital Signs Temp 97.8 F 05/12/18 00:16 Pulse 61 05/12/18 02:08 Resp 18 05/12/18 02:08 BP 128/68 05/12/18 02:08 Pulse Ox 97 05/12/18 03:03 - Medical History PMH: Hepatitis (C) Family History: States: No Known Family Hx - Social History Hx Alcohol Use: No Hx Substance Use: Yes - Immunization History Hx Tetanus Toxoid Vaccination: No Hx Influenza Vaccination: No Hx Pneumococcal Vaccination: No Review Of Systems Except As Marked, All Systems Reviewed And Found Negative. Cardiovascular: Positive for: Chest Pain. Negative for: Palpitations Respiratory: Negative for: Shortness of Breath Gastrointestinal: Negative for: Nausea, Vomiting Physical Exam - Physical Exam Appears: Well, Non-toxic, No Acute Distress Skin: Normal Color, Warm, Dry Head: Atraumatic Eye(s): bilateral: Normal Inspection Neck: Normal ROM, Supple Chest: Symmetrical, No Deformity Cardiovascular: Rhythm Regular Respiratory: Normal Breath Sounds, No Rales, No Rhonchi, No Wheezing Gastrointestinal/Abdominal: Soft, No Tenderness Back: No CVA Tenderness Extremity: Normal ROM (x4), No Pedal Edema, No Calf Tenderness, Capillary Refill (<2 sec), No Deformity, No Swelling Neurological/Psych: Oriented x3, Normal Speech, Normal Motor, Normal Sensation, Normal Reflexes Gait: Steady ED Course And Treatment - Laboratory Results Result Diagrams: 05/12/18 01:38 05/12/18 01:38 ECG: Interpreted By Me, Viewed By Me ECG Rhythm: Sinus Rhythm ECG Interpretation: Normal, No Acute Changes Interpretation Of ECG: no acute ST/T changes Rate From EC O2 Sat by Pulse Oximetry: 97 (RA) Pulse Ox Interpretation: Normal Progress Note: Impression: chest pain. Plans: -- EKG. -- blood work. -- CXR. Reassess: Patient is resting comfortably. Patient' test results were discussed with patient. Patient is stable, in no active distress and will be discharged home. Pt understands the importance of follow up with PMD/Clinic and return precautions d/w pt Disposition Counseled Patient/Family Regarding: Studies Performed, Diagnosis, Need For Followup - Disposition Referrals: [facility] [Outside] Disposition: HOME/ ROUTINE Disposition Time: 02:28 Condition: STABLE Additional Instructions: Please follw up in clinic Tylenol or advil for pain Return to ER if recurring and severe pain, dizziness, syncope or worse Instructions: Chest Pain (DC) Forms: [employer] (Tunisian) - Clinical Impression Clinical Impression: Nonspecific chest pain - 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 - Scribe Statement The provider has reviewed the documentation as recorded by the Rafael Robison Do All medical record entries made by the Scribe were at my direction and personally dictated by me. I have reviewed the chart and agree that the record accurately reflects my personal performance of the history, physical exam, medical decision making, and the department course for this patient. I have also personally directed, reviewed, and agree with the discharge instructions and disposition.
--- NOTE | 2018-05-12 10:16 | RAD ---
Chest x-ray two views History: Chest pain. Comparison: 04/10/2018 Findings: Mild venous congestion. No focal infiltrate or effusion. Heart size within normal limits. Impression: Mild venous congestion. No focal infiltrate or effusion.
--- NOTE | 2018-05-13 08:53 | CARD ---
APPROVED REPORT Date of service: 05/12/2018 EKG Measurement Heart [id number] <Conclusion> Normal sinus rhythm Normal ECG
== END 2018-05-12 02:37 | disposition home or self-care (01) ==
LOC: C.ER 00:10
DX: R07.9 Chest pain, unspecified (principal)